=== PATIENT | female | born 1940 | race Caucasian/White ===

== ENCOUNTER 2017-02-16 23:45 | Emergency (ER) | payer MEDICARE, OTHER ==
[~2017-02-16] VITALS: Ht 152.4 cm; Wt 68.0 kg
[~2017-02-16 23:45] MED LIST: ABIL2TAB PO; ABIL2TAB2 PO; AMLO-150 PO; ASPI325T PO; ASPI81TA85 PO; BISO10TA3 PO; BISO5TAB2 PO; CALC600T21 PO; CELE40TA PO; CRES10TA32 PO; CRES20TA PO; CRES5TAB PO; CYMB60CA3 PO; EXFO5TAB2 PO; IBUP200C PO; MULT1TAB8 PO; OXYB5TAB PO; OXYB5TAB80 PO; PLAV75TA38 PO
[2017-02-17] MEDS ORDERED: MORPHINE 10 MG/ML 1ML VIAL IM ONE (01:15)
--- NOTE | 2017-02-17 02:20 | REPUSA ---
CLINICAL HISTORY: Back pain. TECHNIQUE: Multiple axial images were obtained through the L1-L2, L2-L3, L3-L4, L4-L5 and L5-S1 inter spaces. Images were also reconstructed in coronal and sagittal planes. COMMENTS: S-shaped degenerative lumbar scoliosis. Moderate diffuse spondylotic changes. Unremarkable transpedicular screws at L2, L3 and L4 levels. There is no fracture visualized. The paraspinal soft tissues are unremarkable. There are no lytic or blastic lesions. Straightening of lumbar lordosis is seen, suggesting muscular spasm. There is evidence of multilevel disk disease, demonstrated by osteophytosis ad endplate sclerosis. Evaluation of individual levels reveals the following: At L4-L5 and L5-S1, broad-based disk protrusion in conjunction with hypertrophic facet disease result s in moderate bilateral foraminal narrowing.Canal is mildly stenotic. At L3-L4, broad-based disk bulge, results in mild bilateral foraminal narrowing. Canal is patent. L1-L2 and L2-L3 levels are unremarkable. IMPRESSION: 1. No fracture or spondylolisthesis. Unremarkable metallic hardware at L2, L3 and L4 levels. 2. Straightening of lumbar lordosis is seen, suggesting muscular spasm. 3. At L4-L5 and L5-S1, broad-based disk protrusion in conjunction with hypertrophic facet disease res ults in moderate bilateral foraminal narrowing. . Canal is mildly stenotic. 4. At L3-L4, broad-based disk bulge, results in mild bilateral foraminal narrowing. Canal is patent. Thank you for your kind referral of this patient.
[2017-02-17] MEDS ORDERED: KETO10TAB PO (02:24)
[2017-02-17 02:55] VITALS: BP 149/65
== END 2017-02-17 03:03 | disposition home or self-care (01) ==
LOC: EDBD 23:45 → M ED 02-17 00:59
DX: M46.96 Unspecified inflammatory spondylopathy, lumbar region (principal)

== ENCOUNTER 2017-08-23 09:54 | Inpatient (IN) | payer MEDICARE, OTHER ==
[~2017-08-23] VITALS: Ht 157.5 cm; Wt 68.8 kg
[~2017-08-23 09:54] MED LIST changes: +ABIL1TAB13 PO; -ABIL2TAB2 PO; -CALC600T21 PO; +CALC600T60 PO; -IBUP200C PO; +IBUP200C10 PO; +KETO10TAB PO; +PLAV1TAB2 PO; -PLAV75TA38 PO
[2017-08-23] MEDS ORDERED: HYDR-643 PO (10:16)
[2017-08-23] MEDS ORDERED: CLON0.5T PO (10:16)
[2017-08-23] MEDS ORDERED: METO1TAB32 PO (10:16)
[2017-08-23] MEDS ORDERED: VENL37.598 PO (10:16)
[2017-08-23] MEDS ORDERED: LEVA750T7 PO (10:40)
--- NOTE | 2017-08-23 10:55 | REP ---
CT Head without contrast HISTORY: Syncope COMPARISON: 10/21/2016 An area of decreased attenuation is present in the posterior left temporal , parietal and occipital lobes. There is dilatation of the overlying cortical sulci and posterior body atria and occipital horn of the left lateral ventricle. This represents an old infarction. Areas of decreased attenuation are present in the periventricular and subcortical white matter. This represents small-vessel ischemic disease. There is no intraparenchymal hemorrhage, acute infarct, mass or midline shift. The ventricular system and cortical sulci as well as subarachnoid space in the posterior fossa are dilated consistent with mild volume loss. There is no extra cerebral collection. There is no fracture. The visualized sinuses are clear. IMPRESSION: 1. 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 2. Small vessel ischemic disease. 3. Mild volume loss. Signed by Alexey Argueta MD 08/23/2017 10:47 A
--- NOTE | 2017-08-23 11:28 | REP ---
PORTABLE CHEST X-RAY: SINGLE VIEW. HISTORY: Syncope. COMPARISON STUDY: October 13, 2016 FINDINGS: The lungs are symmetrically aerated. There is some linear platelike atelectasis in the right base laterally which is a new finding. No infiltrate is seen. Pleural angles are sharp. There is a costal cartilage calcification projecting along the left heart border which is unchanged from 2014 prior study. The thoracic aorta is calcific. The heart is not enlarged. Pulmonary vasculature is not increased. The patient is status post lumbar spine laminectomy and fusion hardware placement. IMPRESSION: Linear platelike atelectasis right base. Otherwise no acute disease. Signed by Jeffery Romo MD 08/23/2017 03:30 P
[2017-08-23 12:14] LABS: BASO # 0.1 10^3/uL (0.0-0.2); BASO % 0.5 % (0.0-1.0); EOS # 0.1 10^3/uL (0.0-0.50); EOS % 0.5 % (0.0-3.0); IMMATURE GRANULOCYTE % 0.4 % (0-0); LYMPH # 2.3 10^3/uL (1.5-4.5); LYMPH % 21.6 % (24.0-44.0); MEAN CORPUSCULAR HEMOGLOBIN 30.1 pg (27.0-33.0); MEAN CORPUSCULAR HGB CONC 34.1 g/dl (32.0-36.5); MEAN CORPUSCULAR VOLUME 88.2 fl (80.0-96.0); MONO # 0.9 10^3/uL (0.0-0.8); MONO % 8.2 % (0.0-5.0); NEUTROPHILS # 7.2 10^3/uL (1.8-7.7); NEUTROPHILS % 68.8 % (36.0-66.0); PLATELET COUNT, AUTOMATED 302 10^3/uL (150-450); RED CELL DISTRIBUTION WIDTH 12.1 % (11.5-14.5); WHITE BLOOD COUNT 10.5 10^3/uL (4.0-10.0)
[2017-08-23 12:15] LABS: ADD MANUAL DIFFER NO; DIFF SLIDE NUMBER 186
[2017-08-23 12:44] LABS: ANION GAP 12 MEQ/L (8-16); BLOOD UREA NITROGEN 24 MG/DL (7-18); CALCIUM LEVEL 9.7 MG/DL (8.8-10.2); CARBON DIOXIDE LEVEL 24 MEQ/L (21-32); CHLORIDE LEVEL 98 MEQ/L (98-107); CREATININE FOR GFR 1.31 MG/DL (0.55-1.02); GLOMERULAR FILTRATION RATE 42.1 (>39); GLUCOSE, FASTING 75 MG/DL (83-110); POTASSIUM SERUM 4.2 MEQ/L (3.5-5.1); SODIUM LEVEL 134 MEQ/L (136-145)
[2017-08-23] MEDS ORDERED: NS 1,000 ML IV ONE (13:30)
[2017-08-23] MEDS ORDERED: CALC600T31 PO (14:12)
[2017-08-23] MEDS ORDERED: ASPI1TAB PO (14:12)
[2017-08-23] MEDS ORDERED: ROSU20TA PO (14:12)
[2017-08-23] MEDS ORDERED: CLOP75TA2 PO (14:12)
[2017-08-23] MEDS ORDERED: VENL75CA2 PO (14:12)
[2017-08-23] MEDS ORDERED: ONDANSETRON 4MG/2ML VIAL (J2405) IV PRN (15:30)
[2017-08-23] MEDS ORDERED: clonazePAM 0.5 MG TAB PO PRN (15:30)
--- NOTE | 2017-08-23 15:59 | HPEPDOC ---
General Date of Admission 08/23/17 Primary Care Physician: Jr Garcia Collins Attending Physician: GORGE HANCOCK MD Chief Complaint The patient is a 76-year-old female admitted with a reason for visit of syncope. Source: Patient, Family Exam Limitations: No limitations History of Present Illness Mrs. Arzate is a 76 y/o female with hx of CVA and HLD presenting with c/o lightheadedness and syncope. She notes that for the past 4 days she has felt lightheadedness when standing and describes feeling like she's gonna have a syncopal episode everytime she attempts to ambulate on her own. Pt reports that 5 days ago (Tuesday-08/19), she went on a roadtrip with her daughter to visit her grandson. On Tuesday, at breakfast, she was feeling okay and had an episode of slurring of her speech and altered mentation. Daughter reports that the episode lasted about 3-4 minutes and resolved on its own. She notes that patient was speaking, however, she was slurring her words and her answers didnt make sense. She notes that the patient appeared to have abruptly returned back to normal stating patient "snapped out of it". Pt notes that she has no recollection of the events and that she did not have any particular symptoms prior to or after the event. She notes feeling fatigued/weak after the event but no other focal deficits or residual sxs. She was taken by EMS to the hospital in [place] where she was visiting and had negative blood work as well as negative CT head. She was advised that she appeared to have a UTI per UA and was prescribed Levaquin 750mg and d/c home. Daughter notes that since then patient has had decreased PO intake, and has been sleeping most of the day. Patient reports that she has felt very nauseous since Tuesday and has not had an appetite and this is the reason for her decreased PO intake. Pt's notes that patient has had issues sleeping for the past 2 weeks due to restlessness and not able to fall asleep. Pt states that she has anti-anxiety medication that she has been told to use prn for insomnia and reports she has not used it in the past two weeks. She denies feeling anxious or any recent stressors. Daughter notes that patient has had similar sxs in the past with anxiousness and associated nausea, and notes she believes this is due to patient not using her prn anti anxiety medications as advised. In the ED, patient reports that her nausea has improved, but that she is still feeling lightheaded when she stands. Pt had orthostatic vitals obtained in the ED and standing BP was unattainable. Repeat supine BP shortly after was 101 systolic followed by a BP of 80's systolic. Patient denies CP, SOB, palpitations , LE edema, CASTILLO, focal weakness, vomiting, or urinary symptoms. Home Medications Scheduled (Bisoprolol Fumarate/Dubach 5-6.25 mg) 1 Tab Tab, 1 TAB PO DAILY, (Reported) (Amlodipine Besylate/Valsa 5-160 mg) 1 Tab Tab, 1 TAB PO DAILY, (Reported) (Multi Vitamin Daily) 1 Tab Tab, 1 TAB PO DAILY, (Reported) Aripiprazole (Abilify) 2 Mg Tab, 2 MG PO DAILY, (Reported) Aspirin (Aspirin 81) 81 Mg Tab, 81 MG PO DAILY, (Reported) Calcium (Calcium) 600 Mg Tab, 1,200 MG PO DAILY, (Reported) Citalopram Hydrobromide (Celexa) 40 Mg Tab, 40 MG PO DAILY, (Reported) Clopidogrel Bisulfate (Clopidogrel) 75 Mg Tab, 75 MG PO DAILY, (Reported) Levofloxacin Hemihydrate (Levaquin) 750 Mg Tab, 750 MG PO DAILY, (Reported) FOR 7 DAYS STARTED ON 08/20 Metoprolol Succinate (Metoprolol Succinate ER) 25 Mg Tab, 25 MG PO DAILY, ( Reported) Oxybutynin Chloride (Oxybutynin Chloride ER) 5 Mg Tab, 5 MG PO DAILY, (Reported) Rosuvastatin Calcium (Rosuvastatin Calcium) 20 Mg Tab, 20 MG PO DAILY, (Reported ) Venlafaxine HCl (Venlafaxine HCl ER) 37.5 Mg Capcr, 37.5 MG PO DAILY, (Reported) TAKES WITH 75MG DOSE Venlafaxine HCl (Venlafaxine HCl ER) 75 Mg Cap, 75 MG PO DAILY, (Reported) TAKES WITH 37.5MG DOSE Scheduled PRN Clonazepam (Clonazepam) 0.5 Mg Tab, 0.25 MG PO Q6H PRN for ANXIETY, (Reported) Hydroxyzine HCl (Hydroxyzine HCl) 10 Mg Tab, 10 MG PO QID PRN for DIZZINESS, ( Reported) Ibuprofen (Ibuprofen) 200 Mg Cap, 400 MG PO Q6H PRN for PAIN, (Reported) Allergies Coded Allergies: No Known Allergies (Unverified , 12/12/13) Past Medical History Medical History CVA (09/2016) Depression HTN HLD Surgical History Tonsillectomy Ovarian Cyst removal Appendectomy Lumbar Spinal Stenosis with bulging disks Bilateral Cataracts Lumpectomy Family History Mother-noncontributory Father-sudden , arrhythmia Social History * Smoker: former Smoker (Pt quit 09/2016 after stroke. Used to smoke 1/2 ppd for 50 years. ) Alcohol: Denies Drugs: denies Recent Travel/Sick Contacts: Reports: Recent travel (roadtrip to [place] this past weekend (4 days ago)), Denies: Recent sick contacts Psychosocial History: Anxiety, Depression Review of Symptoms Constitutional: Reports: Weakness, Fatigue, Denies: Chills, Fever, Malaise, Night Sweats, Weight Loss, Lethargy, Other Eyes: Reports: Vision change (chronic, from previous stroke, issue with peripheral vision. no change from baseline), Denies: Pain ENT: Denies: Head Aches, Ear Pain, Dysphagia, Sinus Congestion, Post Nasal Drip , Sore Throat, Other Symptoms Skin: Denies: Rash, Lesions, Bruising, Itching, Dry, Breakdown Pulmonary: Denies: Dyspnea, Cough, Pleuritic Chest Pain Cardiovascular: Reports: Lt Headedness (worse with standing), Denies: Chest Pain, Palpitations, Orthopnea, Paroxysmal Noc. Dyspnea, Edema Gastrointestinal: Reports: Nausea, Denies: Vomiting, Abdominal Pain, Diarrhea, Constipation Genitourinary: Denies: Dysuria, Frequency, Incontinence, Retention Hematologic: Denies: Bruising, Enlarged Lymph Nodes Endocrine: Denies: Polydipsia, Polyphagia, Polyuria Musculoskeletal: Denies: Back Pain, Muscle Pain Neurological: Reports: Weakness, Change in speech (4 days ago, resolved now), Confusion (4 days ago, resolved), Denies: Numbness, Incoordination, Seizures Psych: Denies: Anxiety (has hx of anxiety, denies feeling anxious recently) Physical Examination General Exam: Positive: Alert, Cooperative, No Acute Distress Eye Exam: Positive: PERRLA, Conjunctiva & lids normal, EOMI ENT Exam: Positive: Atraumatic, Tongue Midline, Other ENT (dry mucous membranes ) Chest Exam: Positive: Clear to auscultation, Normal air movement, Negative: Rales, Rhonchi, Wheezing, Diminished Heart Exam: Positive: Rate Normal, Regular Rhythm, Normal S1, Normal S2, Negative: Gallops, Murmurs, Rubs Telemetry: Positive: No significant arrhythmia, Sinus Abdomen Exam: Positive: Normal bowel sounds, Soft, Negative: Tenderness, Hepatospenomegaly Extremity Exam: Positive: Normal pulses, Negative: Edema Skin Exam: Negative: Rash Neuro Exam: Positive: Normal Speech, Strength at 5/5 X4 ext, Normal Tone, Sensation Intact, Cranial Nerves 3-12 NL, Negative: Normal Gait (required assistance due to lightheadedness, able to ambulate with assistance) Vital Signs Vital Signs Date Time Temp Pulse Resp B/P (MAP) Pulse Ox O2 Delivery O2 Flow Rate FiO2 08/23/17 12:46 88/48 (61) 08/23/17 12:39 66 98 08/23/17 10:08 98.7 18 Room Air Laboratory Data Labs 24H Laboratory Tests 2 08/23/17 11:22: Bedside Glucose (Misc Panel) 74L 08/23/17 12:03: Immature Granulocyte % (Auto) 0.4H, White Blood Count 10.5H, Red Blood Count 4.42, Hemoglobin 13.3, Hematocrit 39.0, Mean Corpuscular Volume 88.2, Mean Corpuscular Hemoglobin 30.1, Mean Corpuscular Hemoglobin Concent 34.1, Red Cell Distribution Width 12.1, Platelet Count 302, Neutrophils (%) (Auto) 68.8H, Lymphocytes (%) (Auto) 21.6L, Monocytes (%) (Auto) 8.2H, Eosinophils (%) (Auto) 0.5, Basophils (%) (Auto) 0.5, Neutrophils # (Auto) 7.2, Lymphocytes # (Auto) 2.3, Monocytes # (Auto) 0.9H, Eosinophils # (Auto) 0.1, Basophils # (Auto) 0.1, Immature Granulocyte # (Auto) 0.0, Nucleated Red Blood Cells % (auto) 0.0, Anion Gap 12, Glomerular Filtration Rate 42.1, Blood Urea Nitrogen 24H, Creatinine 1.31H, Sodium Level 134L, Potassium Level 4.2, Chloride Level 98, Carbon Dioxide Level 24, Calcium Level 9.7, Total Creatine Kinase 241H, Magnesium Level 2.0, Creatine Kinase MB 5.4H, Creatine Kinase MB Relative Index 2.24, Troponin I < 0.02, Thyroid Stimulating Hormone (TSH) 1.370, Free Thyroxine 1.30 CBC/BMP Laboratory Tests 08/23/17 12:03 Red Blood Count 4.42, Mean Corpuscular Volume 88.2, Mean Corpuscular Hemoglobin 30.1, Mean Corpuscular Hemoglobin Concent 34.1, Red Cell Distribution Width 12.1 , Neutrophils (%) (Auto) 68.8 H, Lymphocytes (%) (Auto) 21.6 L, Monocytes (%) ( Auto) 8.2 H, Eosinophils (%) (Auto) 0.5, Basophils (%) (Auto) 0.5, Neutrophils # (Auto) 7.2, Lymphocytes # (Auto) 2.3, Monocytes # (Auto) 0.9 H, Eosinophils # (Auto) 0.1, Basophils # (Auto) 0.1, Calcium Level 9.7, Total Creatine Kinase 241 H RAD Interpretation STUDY: CT head without contrast Rad Actions: Other Rad Comments: (No change from prior, no evidence of ischemia) STUDY: CXR Rad Actions: Report Reviewed (NAD) Problems (1) Near syncope Status: Acute Problem Text: Pt with syncopal-like episode 4 days ago, now presenting with pre -syncope. Orthostatic vital signs positive for Orthostatic hypotension, suspect patient's symptoms could be secondary to volume depletion. Patient with normal EKG, normal CHEYANNE last year 09/2016 with no evidence of systolic dysfunction or significant valvular abnormalities. Pt also with negative CT head here and unchanged from previous imaging in September 2016 Plan for admission to PCU for tele monitoring, volume repletion, US carotids as patient has hx of stroke and is a former smoker with no previous US carotids. Pt med list also reviewed, pt on BB and CCB as well as ARB. Plan to hold antihypertensives as pt's BP has been low and these can exacerbate OH sxs. (2) Prerenal azotemia Status: Acute Problem Text: Plan for fluid resuscitation, NS @ 100mL/hr. Will recheck AM labs. (3) Nausea Status: Acute Response to Treatment: Stable Problem Text: Improving, will give Zofran prn. No QT prolongation on EKG in ED (4) Hypertension Status: Chronic Problem Text: Pt on Metoprolol as well as Amlodipine/Valsartan combo, will hold both at this time as patient's BP has been low and these can exacerbate her current sxs. (5) UTI (urinary tract infection) Status: Acute Problem Text: Dx in [place] and started on abx's. She reports no urinary sxs. Pt currently on Levaquin 750mg, will continue this to finish the full course (6) Hyperlipemia Status: Chronic Problem Text: Continue patient's statin. (7) Depression Status: Chronic Problem Text: Will continue patient's home regimen of antidepressants as well as anti anxiety meds. Plan / VTE VTE Prophylaxis Ordered?: Yes (Lovenox) GME ATTESTATION GME ATTESTATION My preceptor for this patient encounter was physically present in the building during the encounter and was fully available. As needed, all aspects of the patient interview, examination, medical decision making process, and medical care plan development were reviewed and approved by the preceptor. Preceptor is aware and concurs with the plan as stated in the body of this note and will attest to such by his/her cosignature. DEEPALI WOODARD DO Aug 23, 2017 14:27
[2017-08-23 17:30] VITALS: BP 101/52
--- NOTE | 2017-08-23 17:30 | REP ---
Bilateral carotid artery duplex ultrasound: Peak flow velocity analysis: RIGHT LEFT ICA. Peak flow velocity cm/sec 58 78 ICA Peak flow velocity cm/sec 18 25 ICA/CCA Ratio 0.70 0.71 ECA Peak flow velocity cm/sec 86 162 CCA Peak flow velocity cm/sec 83 110 There is intimal thickening in the common carotid arteries bilaterally extending into the bulbs and partially into the internal carotid arteries and external carotid arteries bilaterally. The flow velocities in the internal carotid arteries are normal bilaterally. There is no internal carotid artery stenosis. There is elevated peak flow velocity in the left external carotid artery suggestive of 50 - 69% stenosis. The peak flow velocity in the right external carotid artery is normal. There is antegrade flow in the right vertebral artery. The left vertebral artery could not be visualized. Impression: 15 - 69% stenosis in the left external carotid artery. No other stenosis. The study is technically difficult because of high bifurcations bilaterally and because of patient non stop swallowing during the procedure. Depending on degree of clinical concern consider follow-up MRA. Signed by Avelino Cullen MD 08/23/2017 05:22 P
[2017-08-23 17:32] VITALS: BP 102/53
[2017-08-23 17:34] VITALS: BP 109/51
[2017-08-23] MEDS: NS 1,000 ML IV SCH (17:54)
[2017-08-23 20:00] VITALS: BP 102/50
[2017-08-23] MEDS: ENOXAPARIN 40 MG/0.4 ML SYRINGE (J1650) SC SCH (20:57)
[2017-08-24 01:14] VITALS: BP 110/46
[2017-08-24] MEDS: NS 1,000 ML IV SCH (01:22)
[2017-08-24 04:00] VITALS: BP_SYST 101; BP_SYST 104; BP_SYST 109; BP_DIAS 49; BP_DIAS 54
[2017-08-24 06:00] LABS: MEAN CORPUSCULAR HEMOGLOBIN 29.3 pg (27.0-33.0); MEAN CORPUSCULAR HGB CONC 33.2 g/dl (32.0-36.5); MEAN CORPUSCULAR VOLUME 88.2 fl (80.0-96.0); RED CELL DISTRIBUTION WIDTH 12.1 % (11.5-14.5); WHITE BLOOD COUNT 7.9 10^3/uL (4.0-10.0)
[2017-08-24 06:18] LABS: BLOOD UREA NITROGEN 27 MG/DL (7-18); CARBON DIOXIDE LEVEL 21 MEQ/L (21-32); CHLORIDE LEVEL 106 MEQ/L (98-107); CREATININE FOR GFR 0.94 MG/DL (0.55-1.02); GLOMERULAR FILTRATION RATE > 60.0 (>39); GLUCOSE, FASTING 87 MG/DL (83-110)
--- NOTE | 2017-08-24 06:19 | ECGEPIP ---
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 RBBB Electronically Signed On 08-24-2017 6:18:39 EDT by Nick Hines
[2017-08-24 06:25] LABS: ANION GAP 11 MEQ/L (8-16); SODIUM LEVEL 138 MEQ/L (136-145)
[2017-08-24 06:26] LABS: POTASSIUM SERUM 3.1 MEQ/L (3.5-5.1)
[2017-08-24] MEDS ORDERED: POTASSIUM CHLORIDE 10 MEQ SR TABLET PO ONE (06:30)
[2017-08-24 08:00] VITALS: BP 124/56
[2017-08-24] MEDS: ROSUVASTATIN 10 MG TAB (CRESTOR) PO SCH (09:04)
[2017-08-24] MEDS: ASPIRIN 81 MG ENTERIC TAB PO SCH (09:04)
[2017-08-24] MEDS: CitaloPRAM (CeleXA) 20 MG TAB PO SCH (09:04)
[2017-08-24] MEDS: CLOPIDOGREL 75 MG TAB PO SCH (09:04)
[2017-08-24] MEDS: CALCIUM CARBONATE 500 MG CHEW U/D PO SCH (09:04)
[2017-08-24] MEDS: VENLAFAXINE **XR** 75MG CAPSULE PO SCH (09:05)
[2017-08-24] MEDS: VENLAFAXINE **XR** 37.5 MG CAPSULE PO SCH (09:05)
[2017-08-24] MEDS: oxyBUTYnin *DITROPAN XL* 5 MG TABCR PO SCH (09:05)
[2017-08-24] MEDS: MULTIVITAMINS/MINERALS THERAP 1 TAB PO SCH (09:05)
[2017-08-24 12:00] VITALS: BP_SYST 121; BP_SYST 122; BP_SYST 125; BP_DIAS 56; BP_DIAS 60
[2017-08-24] MEDS: ARIPiprazole 2 MG TAB PO SCH (12:03)
--- NOTE | 2017-08-24 12:25 | IPNPDOC ---
Subjective Date Seen The patient was seen on 08/24/17. Subjective Chief Complaint/HPI The patient is a 76-year-old female admitted with a reason for visit of Orthostatic Hypotension. Events since last encounter still with lightheadedness and dizziness on getting up from bed, continues to have poor appetite and nausea , no vomiting , no abdominal pain , no diarrhea. no chest pain or sob , no cough or phlegm, no dysuria, Objective Physical Examination General Exam: Positive: Alert, Cooperative, No Acute Distress Eye Exam: Positive: PERRLA, Conjunctiva & lids normal, EOMI ENT Exam: Positive: Atraumatic, Tongue Midline, Other ENT (dry mucous membranes ) Chest Exam: Positive: Clear to auscultation, Normal air movement, Negative: Rales, Rhonchi, Wheezing, Diminished Heart Exam: Positive: Rate Normal, Regular Rhythm, Normal S1, Normal S2, Negative: Gallops, Murmurs, Rubs Telemetry: Positive: No significant arrhythmia, Sinus Abdomen Exam: Positive: Normal bowel sounds, Soft, Negative: Tenderness, Hepatospenomegaly Extremity Exam: Positive: Normal pulses, Negative: Edema Skin Exam: Negative: Rash Neuro Exam: Positive: Normal Speech, Strength at 5/5 X4 ext, Normal Tone, Sensation Intact, Cranial Nerves 3-12 NL, Negative: Normal Gait (required assistance due to lightheadedness, able to ambulate with assistance) Assessment /Plan Problems (1) Near syncope Status: Acute Problem Text: pre-syncope. Orthostatic vital signs positive for Orthostatic hypotension, suspect patient's symptoms secondary to volume depletion on the back ground of being on multiple antihypertensives and diuretic. Patient with normal EKG, normal CHEYANNE last year 09/2016 with no evidence of systolic dysfunction or significant valvular abnormalities. Carotid Doppler negative for significant obstruction. will continue to hold antihypertensives continue IVF . (2) MITCHEL (acute kidney injury) Status: Acute Problem Text: prerenal for poor intake . will continue with IVF. (3) Nausea Status: Acute Response to Treatment: Improving Problem Text: Improving, will give Zofran prn. No QT prolongation on EKG in ED (4) Hypertension Status: Chronic Problem Text: Pt on Metoprolol and bisoprolol as well as Amlodipine/Valsartan combo also HCTZ. , will hold both at this time as patient's BP has been low and these can exacerbate her current sxs. Unsure why patient on double betablockers. (5) UTI (urinary tract infection) Status: Resolved Problem Text: patient finished 4 doses of levaquin will stop at present. (6) Hyperlipemia Status: Chronic Problem Text: Continue patient's statin. (7) Depression Status: Chronic Problem Text: Will continue patient's home regimen of antidepressants as well as anti anxiety meds. (8) History of CVA (cerebrovascular accident) Status: Chronic Problem Text: CT head shows old left temporo parietal and occipital lobe infarction. Plan/VTE VTE Prophylaxis Ordered?: Yes (Lovenox) VS, I&O, 24H, Fishbone Vital Signs/I&O Vital Signs Date Time Temp Pulse Resp B/P (MAP) Pulse Ox O2 Delivery O2 Flow Rate FiO2 08/24/17 08:00 97.8 89 18 124/56 (78) 100 Room Air I&O- Last 24 Hours up to 6 AM 08/25/17 06:00 Intake Total 0 ml Output Total 300 ml Balance -300 ml Laboratory Data 24H LABS Laboratory Tests 2 08/23/17 17:02: Urine Appearance HAZY, Urine Color YELLOW, Urine pH 5.0, Urine Specific Secor 1.009, Urine Protein 1+H, Urine Glucose (UA) NEGATIVE, Urine Ketones 1+H, Urine Urobilinogen 0.2, Urine Bilirubin NEGATIVE, Urine Leukocyte Esterase NEGATIVE, Urine Blood 1+H, Urine Nitrite NEGATIVE, Urine WBC (Auto) 9H, Urine RBC (Auto) 4H, Urine Hyaline Casts (Auto) 1, Urine Bacteria (Auto) NEGATIVE, Urine Squamous Epithelial Cells 0, Urine Mucus (Auto) SMALL, Urine Sperm (Auto) 08/24/17 05:34: Anion Gap 11, Glomerular Filtration Rate > 60.0, Blood Urea Nitrogen 27H, Creatinine 0.94, Sodium Level 138, Potassium Level 3.1#L, Chloride Level 106, Carbon Dioxide Level 21, Calcium Level 8.0#L CBC/BMP Laboratory Tests 08/24/17 05:34 Red Blood Count 3.65 L, Mean Corpuscular Volume 88.2, Mean Corpuscular Hemoglobin 29.3, Mean Corpuscular Hemoglobin Concent 33.2, Red Cell Distribution Width 12.1, Calcium Level 8.0 #L Microbiology Microbiology 08/23/17 Blood Culture, Received Pending 08/23/17 Blood Culture, Received Pending 08/23/17 Urine Culture, Received Pending TERRY CHILDERS MD Aug 24, 2017 12:25
[2017-08-24 14:00] VITALS: BP 116/48
[2017-08-24 20:00] VITALS: BP_SYST 110; BP_SYST 120; BP_DIAS 51; BP_DIAS 56; BP_DIAS 58
[2017-08-24] MEDS: ENOXAPARIN 40 MG/0.4 ML SYRINGE (J1650) SC SCH (20:59)
[2017-08-25 06:00] VITALS: BP 127/60
[2017-08-25 07:13] LABS: MEAN CORPUSCULAR HEMOGLOBIN 29.9 pg (27.0-33.0); MEAN CORPUSCULAR HGB CONC 34.1 g/dl (32.0-36.5); MEAN CORPUSCULAR VOLUME 87.9 fl (80.0-96.0); RED CELL DISTRIBUTION WIDTH 12.1 % (11.5-14.5); WHITE BLOOD COUNT 6.2 10^3/uL (4.0-10.0)
[2017-08-25 07:26] LABS: ANION GAP 10 MEQ/L (8-16); BLOOD UREA NITROGEN 14 MG/DL (7-18); CALCIUM LEVEL 8.3 MG/DL (8.8-10.2); CARBON DIOXIDE LEVEL 21 MEQ/L (21-32); CHLORIDE LEVEL 107 MEQ/L (98-107); CREATININE FOR GFR 0.74 MG/DL (0.55-1.02); GLOMERULAR FILTRATION RATE > 60.0 (>39); GLUCOSE, FASTING 104 MG/DL (83-110); POTASSIUM SERUM 3.4 MEQ/L (3.5-5.1); SODIUM LEVEL 138 MEQ/L (136-145)
[2017-08-25] MEDS: CALCIUM CARBONATE 500 MG CHEW U/D PO SCH (08:58)
[2017-08-25] MEDS: ASPIRIN 81 MG ENTERIC TAB PO SCH (08:58)
[2017-08-25] MEDS: MULTIVITAMINS/MINERALS THERAP 1 TAB PO SCH (08:59)
[2017-08-25] MEDS: ARIPiprazole 2 MG TAB PO SCH (08:59)
[2017-08-25] MEDS: VENLAFAXINE **XR** 37.5 MG CAPSULE PO SCH (08:59)
[2017-08-25] MEDS: CitaloPRAM (CeleXA) 20 MG TAB PO SCH (08:59)
[2017-08-25] MEDS: VENLAFAXINE **XR** 75MG CAPSULE PO SCH (08:59)
[2017-08-25] MEDS: CLOPIDOGREL 75 MG TAB PO SCH (08:59)
[2017-08-25] MEDS: oxyBUTYnin *DITROPAN XL* 5 MG TABCR PO SCH (08:59)
[2017-08-25] MEDS: ROSUVASTATIN 10 MG TAB (CRESTOR) PO SCH (09:00)
[2017-08-25] MEDS ORDERED: INFLUENZA VIRUS VACCINE HIGH DOSE 0.5 ML SYRINGE (90662) IM ONE (09:00)
[2017-08-25 10:00] VITALS: BP_SYST 105; BP_SYST 119; BP_SYST 120; BP_DIAS 54; BP_DIAS 57; BP_DIAS 60
[2017-08-25] MEDS ORDERED: POTASSIUM CHLORIDE 10 MEQ SR TABLET PO ONE (11:30)
--- NOTE | 2017-08-25 13:52 | DSES ---
DATE OF ADMISSION: 08/23/2017 DATE OF DISCHARGE: 08/25/2017 PRIMARY CARE PROVIDER: Paramjit Garcia MD DISCHARGE DIAGNOSES: Presyncope due to orthostatic hypotension. Acute kidney injury due to prerenal causes. Hypotension due to poor oral intake and medications. Urinary tract infection, treated. Hyperlipidemia. Depression. History of cerebrovascular accident (CVA). Overactive bladder Chronic pain. DISCHARGE MEDICATIONS: - Abilify 2 mg by mouth daily - aspirin 81 mg by mouth daily - calcium 1200 mg by mouth daily - Celexa 40 mg by mouth daily - clonazepam 0.25 mg by mouth every 6 hours as needed anxiety - Plavix 75 mg by mouth daily - hydroxyzine 10 mg by mouth four times a day as needed dizziness - ibuprofen 400 mg by mouth every 6 hours as needed pain - metoprolol succinate 25 mg by mouth daily - multivitamin one tablet by mouth daily - oxybutynin chloride 5 mg by mouth daily - rosuvastatin 20 mg by mouth daily - venlafaxine 112.5 mg by mouth daily HOSPITAL COURSE: Patient is a 76-year-old female who presented to the hospital with a four day history of nausea, poor oral intake and presyncopal episode with lightheadedness and dizziness. Patient was visiting her grandson in [place] five days ago when while there she had a presyncopal episode with drooping of one side of the face and weakness of one side of the body. She was taken to the emergency room in [place] where the family thought she may have had a stroke, however emergency room physicians diagnosed her with a UTI and discharged her with levofloxacin. Patient was taking levofloxacin at home, came back to [place] after her visit and was continuing to have nausea and poor oral intake, and then on the day of admission again was very lightheaded and dizzy and almost passed out and so was brought to the emergency room. In the emergency room, the patient was noted to have low normal blood pressures with orthostatic positive hypotension. The patient was also noted to have mild dehydration with acute kidney injury. Patient was admitted for a presyncopal episode due to orthostatic hypotension and acute kidney injury from dehydration and poor oral intake. In the hospital, the patient's antihypertensives were held and the patient was hydrated with normal saline. Patient felt better and her blood pressures improved; however, still continued to be in the low normal to normal range. So, two of her blood pressure medications were discontinued and she was only discharged with metoprolol succinate. On the day of discharge the patient did not have any symptoms and her orthostatic had resolved. She was functionally at her baseline and was discharged home. PHYSICAL EXAMINATION: VITAL SIGNS: Temperature 96.9, pulse 70, respiratory rate 20, blood pressure 120/60, pulse oximetry 96% in room air. GENERAL: Patient awake, alert and oriented times three sitting up in chair in no acute distress. HEENT: Normocephalic, atraumatic. Moist mucous membranes. Anicteric eyes. CHEST: Clear to auscultation. CARDIOVASCULAR: S1 and S2 regular. No rub, murmur or gallop. ABDOMEN: Soft, nontender. Bowel sounds present. EXTREMITIES: No edema. LABORATORY DATA: WBC 6.2, hemoglobin 10.6, platelets 229, sodium 138, potassium 3.4, chloride 107, bicarb 21, BUN 14, creatinine 0.7, glucose 104, calcium 8.3. Urinalysis clean. Blood culture no growth after 24 hours. Urine culture no growth. CT scan of the head shows old left temporoparietal and occipital lobe infarction. Small vessel ischemic disease. Mild volume loss. Carotid ultrasound showed 15-69% stenosis in the left external carotid artery. No other stenosis. DISPOSITION: Patient is discharged home in stable condition. DISCHARGE INSTRUCTIONS: Patient to followup with primary care provider in one week. Regular diet. Activity as tolerated.
[2017-09-21] MEDS ORDERED: SENE8.6T3 PO (13:44)
== END 2017-08-25 12:00 | disposition home or self-care (01) | DRG 312 ==
LOC: M ED 09:54 → EDBD 09:54 → M ED INP 13:58 → M PCU 17:30 → M MS4PR 08-24 13:40
PROVIDERS: ADMIT Internal Medicine; ATTEND Internal Medicine Nephrology
DX: I95.1 Orthostatic hypotension (principal); N17.9 Acute kidney failure, unspecified; N39.0 Urinary tract infection, site not specified; E78.5 Hyperlipidemia, unspecified; F32.9 Major depressive disorder, single episode, unspecified; G89.29 Other chronic pain; Z86.73 Personal history of transient ischemic attack (TIA), and cerebral infarction without residual deficits; Z79.82 Long term (current) use of aspirin; Z79.899 Other long term (current) drug therapy; Z87.891 Personal history of nicotine dependence

== ENCOUNTER → 2017-09-05 | Outpatient (REF) | payer MEDICARE, OTHER ==
[~2017-09-05] MED LIST changes: +ASPI1TAB PO; +CALC600T31 PO; +CLON0.5T PO; +CLOP75TA2 PO; +HYDR-643 PO; +LEVA750T7 PO; +METO1TAB32 PO; +ROSU20TA PO; +SENE8.6T3 PO; +VENL37.598 PO; +VENL75CA2 PO
[2017-09-06 08:25] LABS: CONTROL LINE HPYORI INT CTR LINE PRESENT
== END ==
LOC: M LAB REF 17:01
PROVIDERS: ATTEND Nurse Practitioner Family
DX: R11.0 Nausea (principal)

== ENCOUNTER 2017-10-19 16:19 | Emergency (ER) | payer MEDICARE, OTHER ==
[~2017-10-19] VITALS: Ht 154.9 cm; Wt 66.4 kg
[2017-10-19] MEDS ORDERED: AMLODIPINE-VALSARTAN (16:41)
[2017-10-19] MEDS ORDERED: KLON0.5T PO (16:41)
[2017-10-19 18:14] LABS: BASO # 0.1 10^3/uL (0.0-0.2); BASO % 0.9 % (0.0-1.0); EOS # 0.2 10^3/uL (0.0-0.50); EOS % 2.3 % (0.0-3.0); IMMATURE GRANULOCYTE % 0.3 % (0-0); LYMPH # 2.1 10^3/uL (1.5-4.5); LYMPH % 22.9 % (24.0-44.0); MEAN CORPUSCULAR HEMOGLOBIN 29.2 pg (27.0-33.0); MEAN CORPUSCULAR HGB CONC 33.3 g/dl (32.0-36.5); MEAN CORPUSCULAR VOLUME 87.6 fl (80.0-96.0); MONO # 0.8 10^3/uL (0.0-0.8); MONO % 8.4 % (0.0-5.0); NEUTROPHILS # 5.9 10^3/uL (1.8-7.7); NEUTROPHILS % 65.2 % (36.0-66.0); PLATELET COUNT, AUTOMATED 373 10^3/uL (150-450); RED CELL DISTRIBUTION WIDTH 12.4 % (11.5-14.5); WHITE BLOOD COUNT 9.1 10^3/uL (4.0-10.0)
[2017-10-19 18:27] LABS: INR 0.98
[2017-10-19 18:35] LABS: ALBUMIN 3.2 GM/DL (3.2-5.2); ALKALINE PHOSPHATASE 70 U/L (45-117); ALT/SGPT 17 U/L (12-78); ANION GAP 7 MEQ/L (8-16); AST/SGOT 12 U/L (7-37); BILIRUBIN,DIRECT < 0.1 MG/DL (0.0-0.2); BILIRUBIN,TOTAL 0.3 MG/DL (0.2-1.0); BLOOD UREA NITROGEN 16 MG/DL (7-18); CALCIUM LEVEL 9.4 MG/DL (8.8-10.2); CARBON DIOXIDE LEVEL 29 MEQ/L (21-32); CHLORIDE LEVEL 100 MEQ/L (98-107); CREATININE FOR GFR 0.89 MG/DL (0.55-1.02); GLOMERULAR FILTRATION RATE > 60.0 (>39); GLUCOSE, FASTING 107 MG/DL (83-110); POTASSIUM SERUM 3.8 MEQ/L (3.5-5.1); SODIUM LEVEL 136 MEQ/L (136-145); TOTAL PROTEIN 6.4 GM/DL (6.4-8.2)
[2017-10-19 19:42] VITALS: BP 157/84
== END 2017-10-19 19:45 | disposition home or self-care (01) ==
LOC: M ED 16:19
DX: K05.00 Acute gingivitis, plaque induced (principal); Z87.891 Personal history of nicotine dependence; Z79.899 Other long term (current) drug therapy; Z79.02 Long term (current) use of antithrombotics/antiplatelets; Z86.73 Personal history of transient ischemic attack (TIA), and cerebral infarction without residual deficits; I10 Essential (primary) hypertension; E78.4 Other hyperlipidemia

== ENCOUNTER 2017-10-24 08:58 | Emergency (ER) | payer MEDICARE, OTHER ==
[~2017-10-24] VITALS: Ht 152.4 cm; Wt 62.3 kg
[~2017-10-24 08:58] MED LIST changes: +AMLODIPINE-VALSARTAN; +KLON0.5T PO
[2017-10-24] MEDS ORDERED: VITA200016 PO (09:14)
[2017-10-24] MEDS ORDERED: VENL100T PO (09:14)
[2017-10-24] MEDS ORDERED: NS 500 ML IV ONE (10:00)
[2017-10-24] MEDS ORDERED: ONDANSETRON 4MG/2ML VIAL (J2405) IV ONE (10:00)
[2017-10-24 10:06] LABS: BASO # 0.1 10^3/uL (0.0-0.2); BASO % 0.9 % (0.0-1.0); EOS # 0.1 10^3/uL (0.0-0.50); EOS % 1.8 % (0.0-3.0); IMMATURE GRANULOCYTE % 0.8 % (0-0); LYMPH # 1.6 10^3/uL (1.5-4.5); LYMPH % 23.5 % (24.0-44.0); MEAN CORPUSCULAR HEMOGLOBIN 29.5 pg (27.0-33.0); MEAN CORPUSCULAR HGB CONC 33.6 g/dl (32.0-36.5); MEAN CORPUSCULAR VOLUME 87.7 fl (80.0-96.0); MONO # 0.4 10^3/uL (0.0-0.8); NEUTROPHILS # 4.5 10^3/uL (1.8-7.7); PLATELET COUNT, AUTOMATED 370 10^3/uL (150-450); RED CELL DISTRIBUTION WIDTH 12.5 % (11.5-14.5); WHITE BLOOD COUNT 6.6 10^3/uL (4.0-10.0)
[2017-10-24 10:36] LABS: ALBUMIN 3.2 GM/DL (3.2-5.2); ALBUMIN/GLOBULIN RATIO 0.91 (1.00-1.93); ALKALINE PHOSPHATASE 64 U/L (45-117); ALT/SGPT 20 U/L (12-78); ANION GAP 6 MEQ/L (8-16); AST/SGOT 16 U/L (7-37); BILIRUBIN,DIRECT < 0.1 MG/DL (0.0-0.2); BILIRUBIN,TOTAL 0.3 MG/DL (0.2-1.0); BLOOD UREA NITROGEN 8 MG/DL (7-18); CALCIUM LEVEL 8.9 MG/DL (8.8-10.2); CARBON DIOXIDE LEVEL 30 MEQ/L (21-32); CHLORIDE LEVEL 101 MEQ/L (98-107); CREATININE FOR GFR 0.64 MG/DL (0.55-1.02); GLOMERULAR FILTRATION RATE > 60.0 (>39); GLUCOSE, FASTING 108 MG/DL (83-110); POTASSIUM SERUM 3.3 MEQ/L (3.5-5.1); SODIUM LEVEL 137 MEQ/L (136-145); TOTAL PROTEIN 6.7 GM/DL (6.4-8.2)
[2017-10-24] MEDS ORDERED: ISOVUE-370 76% 100ML VIAL (Q9967) As Ordered ONE (10:47)
--- NOTE | 2017-10-24 11:39 | REP ---
CT abdomen and pelvis with IV contrast: 10/24/2017 Comparison 09/26/2017 at [facility]. Clinical history: Lower abdominal pain, nausea. Technique. The patient received 75 ml as Isovue 370, scanning through the abdomen and pelvis with coronal and sagittal reconstructions. Axial images with orthopedic metal artifact reduction algorithm performed. Director Of Assessing image shows that she has an L2-L4 lumbar laminectomy and fusion with pedicle screws and arch bars. Findings: CT abdomen: The lung bases show minimal linear atelectatic change left lower lobe. Heart is not enlarged. There is no pericardial thickening or effusion. I do not see enlargement of the left atrium. This is very small hiatal hernia suggested. No hepatosplenomegaly, focal hepatic or splenic lesion, intrahepatic biliary dilatation or ascites. Gallbladder without calcified stone or mass. Adrenal glands are normal. Pancreas without mass, ductal dilatation or adjacent inflammatory change. Kidneys show lobation, some scarring laterally lower pole on the left. There is extrarenal pelvis bilaterally right larger than left, but no gross hydronephrosis. I see no definite renal cyst or solid mass. There is no renal stone or ureteral stone. Bladder well filled and without wall thickening, mass or stone. Atherosclerotic calcifications are noted with the aorta but no aneurysm or dissection. Hardware with pedicle screws and arch bars on each side from L2 through L4 are intact. The normal lordosis of the lumbar spine intact. There are some degenerative disc changes and small posterior osteophytes at L3-4. Disc space narrowing at all three of those levels. Laminectomy defects preserved. There is atherosclerotic calcification of the iliac arteries without aneurysm in aortoiliac vessels. No periaortic or retroperitoneal pathologic sized lymphadenopathy. Visualized small bowel loops grossly intact. Abdominal portion of the colon shows no sign of colitis or diverticulitis. There are a few scattered distal left colonic diverticula. Lung window review of all CT slices abdomen and pelvis shows no perforation or free air. Visualized lower ribs intact. CT pelvis: Sacrum, SI joints, iliac bones were all intact. Acetabuli show minor spurring. The femoral heads, neck, trochanters and subtrochanteric bones on each side were all without fracture or focal lesion. Minor degenerative change of the hips. Bladder without wall thickening, mass or stone. Uterus anteverted, not enlarged. There is no pelvic or adnexal mass. No ventral or inguinal hernia nor pathologic sized inguinal adenopathy. Distal left colon, sigmoid and rectum without acute inflammatory changes and only a few scattered diverticula without diverticulitis. Cecum unremarkable. No appendix is present. No ventral or inguinal hernia in the pelvis or inguinal adenopathy. Impression: 1. Status post L2-L4 laminectomy with pedicle screws and arch bars on each side and normal lumbar lordosis. No ventral hernia, central canal stenosis or malalignment of the lumbar spine. 2. A few scattered diverticula without signs of diverticulitis, colitis, stricture or mass in the colon. 3. Small bowel loops intact. Stomach with a tiny hiatal hernia but otherwise unremarkable. The colon shows no evidence of colitis or diverticulitis. 4. No ascites or adenopathy and no free air. The solid organs, gallbladder, and the abdominal wall unremarkable. No ventral or inguinal hernia. Signed by Moreno Mueller MD 10/25/2017 07:18 P
[2017-10-24 11:49] VITALS: BP 153/69
== END 2017-10-24 11:51 | disposition home or self-care (01) ==
LOC: M ED 08:58
DX: K59.00 Constipation, unspecified (principal); R11.0 Nausea; M54.5 Low back pain; E78.9 Disorder of lipoprotein metabolism, unspecified; I10 Essential (primary) hypertension; F03.90 Unspecified dementia, unspecified severity, without behavioral disturbance, psychotic disturbance, mood disturbance, and anxiety; Z86.73 Personal history of transient ischemic attack (TIA), and cerebral infarction without residual deficits; Z79.899 Other long term (current) drug therapy; Z79.02 Long term (current) use of antithrombotics/antiplatelets; Z79.82 Long term (current) use of aspirin
CPT/HCPCS: 74177; 80048; 80076; 81001; 83690; 85025; 96374; 99284; J2405; Q9967

== ENCOUNTER → 2018-03-14 | Outpatient (REF) | payer MEDICARE, OTHER ==
[2018-03-14 17:56] LABS: ERYTHROCYTE SEDIMENTATION RATE 25 mm/hr (0-30)
[2018-03-14 18:13] LABS: FREE T4 0.88 NG/DL (0.76-1.46); RHEUMATOID FACTOR QUANT < 10.0 IU/ML (<15.0); VITAMIN B12 LEVEL 559 PG/ML
[2018-03-14 18:14] LABS: ESTIMATED AVERAGE GLUCOSE 123 MG/DL (60-110); FOLATE 6.1 NG/ML; HEMOGLOBIN A1c 5.9 %
[2018-03-19 10:08] LABS: ANTINUCLEAR ANTIBODIES DIRECT Negative (Negative); VITAMIN B1 LEVEL WHOLE BLOOD 123.5 nmol/L (66.5-200.0); VITAMIN B6,PYRIDOXAL PHOSPHATE 3.8 ug/L (2.0-32.8); VITAMIN E(ALPHA TOCOPHEROL) 11.3 mg/L (9.0-29.0)
== END ==
LOC: M LABNEURO 12:07
DX: G62.9 Polyneuropathy, unspecified (principal); G91.2 (Idiopathic) normal pressure hydrocephalus; R41.3 Other amnesia; R26.81 Unsteadiness on feet; Z79.899 Other long term (current) drug therapy
CPT/HCPCS: 82746

== ENCOUNTER → 2019-08-03 | Outpatient (REF) ==
[~2019-08-03] MED LIST changes: +ASPI-1 PO; -ASPI1TAB PO; -ASPI325T PO; +ASPI81TA26 PO; -CLON0.5T PO; +CLON0.5T2 PO; +CRES10TA PO; -CRES10TA32 PO; -CRES20TA PO; +CRES20TA2 PO; +HYDR12.55; -IBUP200C10 PO; +IBUP200C25 PO; +MECL1TAB31 PO; +OXYB-54 PO; -OXYB5TAB PO; -ROSU20TA PO; +ROSU20TA5 PO; +VENL100T PO; +VITA200016 PO
[2019-08-03 12:03] LABS: HEMATOCRIT 38.8 % (36.0-47.0); HEMOGLOBIN 12.7 g/dl (12.0-15.5); MEAN CORPUSCULAR HEMOGLOBIN 28.9 pg (27.0-33.0); MEAN CORPUSCULAR HGB CONC 32.7 g/dl (32.0-36.5); MEAN CORPUSCULAR VOLUME 88.4 fl (80.0-96.0); PLATELET COUNT, AUTOMATED 322 10^3/uL (150-450); RED BLOOD COUNT 4.39 10^6/uL (4.00-5.40); WHITE BLOOD COUNT 8.6 10^3/uL (4.0-10.0)
[2019-08-03 12:30] LABS: ALBUMIN 3.3 GM/DL (3.2-5.2); ALT/SGPT 19 U/L (12-78); BILIRUBIN,TOTAL 0.4 MG/DL (0.2-1.0); BLOOD UREA NITROGEN 26 MG/DL (7-18); CALCIUM LEVEL 9.4 MG/DL (8.8-10.2); CARBON DIOXIDE LEVEL 24 MEQ/L (21-32); CHLORIDE LEVEL 103 MEQ/L (98-107); CREATININE FOR GFR 0.74 MG/DL (0.55-1.30); GLOMERULAR FILTRATION RATE > 60.0 (>39); GLUCOSE, FASTING 95 MG/DL (70-100); POTASSIUM SERUM 3.8 MEQ/L (3.5-5.1); SODIUM LEVEL 137 MEQ/L (136-145); TOTAL PROTEIN 6.5 GM/DL (6.4-8.2)
== END ==
LOC: SKLAB8 11:15
PROVIDERS: ATTEND Internal Medicine
DX: I10 Essential (primary) hypertension (principal); D64.9 Anemia, unspecified

== ENCOUNTER 2020-01-18 03:16 | Inpatient (IN) | payer OTHER, MEDICARE ==
[~2020-01-18] VITALS: Ht 157.5 cm; Wt 59.3 kg
[~2020-01-18 03:16] MED LIST changes: -AMLO-150 PO; +AMLO-179 PO
[2020-01-18] MEDS ORDERED: SENN1TAB41 PO (03:56)
[2020-01-18] MEDS ORDERED: POTA10CA32 PO (03:56)
[2020-01-18] MEDS ORDERED: FLEEENE12 PR (03:56)
[2020-01-18] MEDS ORDERED: ACET-907 PO (03:56)
[2020-01-18] MEDS ORDERED: HYDR12.55 PO (03:56)
[2020-01-18] MEDS ORDERED: FLUT05CR TOP (03:56)
[2020-01-18] MEDS ORDERED: VENL37.52 PO (03:56)
[2020-01-18] MEDS ORDERED: VENL75CA47 PO (03:56)
[2020-01-18] MEDS ORDERED: DULC10SU2 PR (03:56)
[2020-01-18] MEDS ORDERED: VITMTA PO (03:56)
[2020-01-18] MEDS ORDERED: VITA50005 PO (03:56)
[2020-01-18] MEDS ORDERED: IPRA0.00 INH (03:56)
[2020-01-18] MEDS ORDERED: ACET650S3 PR (03:56)
[2020-01-18 04:05] LABS: BASO % 0.2 % (0.0-1.0); HEMATOCRIT 42.1 % (36.0-47.0); HEMOGLOBIN 14.1 g/dl (12.0-15.5); LYMPH # 0.7 10^3/uL (1.5-5.0); LYMPH % 5.2 % (24.0-44.0); MEAN CORPUSCULAR HEMOGLOBIN 29.7 pg (27.0-33.0); MEAN CORPUSCULAR HGB CONC 33.5 g/dl (32.0-36.5); MEAN CORPUSCULAR VOLUME 88.6 fl (80.0-96.0); MONO # 0.8 10^3/uL (0.0-0.8); MONO % 5.5 % (0.0-5.0); NEUTROPHILS # 12.2 10^3/uL (1.5-8.5); NEUTROPHILS % 88.8 % (36.0-66.0); PLATELET COUNT, AUTOMATED 249 10^3/uL (150-450); RED BLOOD COUNT 4.75 10^6/uL (4.00-5.40); WHITE BLOOD COUNT 13.8 10^3/uL (4.0-10.0)
[2020-01-18 04:31] LABS: CALCIUM LEVEL 8.9 MG/DL (8.8-10.2); CREATININE FOR GFR 0.98 MG/DL (0.55-1.30); GLOMERULAR FILTRATION RATE 58.4 (>39); POTASSIUM SERUM 3.1 MEQ/L (3.5-5.1)
[2020-01-18 04:44] LABS: INFLUENZA A AMPLIFICATION NEGATIVE (NEGATIVE); INFLUENZA B AMPLIFICATION POSITIVE (NEGATIVE)
[2020-01-18] MEDS ORDERED: PIPERACILLIN/TAZOBACTAM SOD 3.375 GM in D5W MINI-BAG PLUS 50 ML IV ONE (04:45)
[2020-01-18] MEDS ORDERED: OSELTAMIVIR PHOSPHATE 75 MG CAP (TAMIFLU) PO ONE (05:00)
[2020-01-18] MEDS ORDERED: ACETAMINOPHEN 325 MG TAB As Ordered ONE (05:10)
[2020-01-18] MEDS ORDERED: MOM 30ML SUSPENSION UDC PO PRN (05:15)
[2020-01-18] MEDS ORDERED: MAALOX 30 ML SUSP *UDC PO PRN (05:15)
--- NOTE | 2020-01-18 05:18 | HPEPDOC ---
[facility] Medical History & Physical Date of Admission Jan 18, 2020 Date of Service: Jan 18, 2020 Primary Care Physician: Jr Garcia Collins Attending Physician: YORDAN WALLACE MD History and Physical TIME OF SERVICE: 5:15 AM CHIEF COMPLAINT: Some from intermediate HISTORY OF PRESENT ILLNESS: The patient has advanced dementia, the majority of the history was obtained from the ER attending and the patient's daughter. This is a 75-year-old female who was sent from her intermediate because of a drop in O2 saturation 87% and a fever as high as 109. The family requested that the intermediate send her for evaluation to expedite the workup. According to the patient's daughter, she's not sure if her mother has had a change in her behavior, or whether she's had any URI symptoms, change in appetite, or change in routine. Currently the patient is asleep and intermittently arousable with vocal stimuli. She received Zosyn for left lower lobe pneumonia. REVIEW OF SYSTEMS: 12 point review of systems negative except as listed in HPI PAST MEDICAL/ SURGICAL HISTORY: Vascular dementia /CVA in 2016 Dyslipidemia Chronic hypertension. Status post tonsillectomy. Status post ovarian cystectomy. Status post appendectomy. Status post lumbar spinal stenosis. Status post cataract surgery. Status post lumpectomy SOCIAL HISTORY: Resides at [facility] FAMILY HISTORY: N/A ALLERGIES: Please see below. HOME MEDICATIONS: Please see below. PHYSICAL EXAMINATION: Vital Signs Date Time Temp Pulse Resp B/P (MAP) Pulse Ox O2 Delivery O2 Flow Rate FiO2 01/18/20 03:25 107 24 87 Room Air 01/18/20 03:46 100.9 4.0 01/18/20 03:47 128/58 (81) 01/18/20 05:17 50 GEN: well-nourished / well developed INTEGUMENT: not flushed HEENT: NCAT / lips acyanotic /mucus membranes moist and pink / Ventimask is in place CVS: RRR/NMRG LUNGS: Breath sounds are diminished ABDOMEN: Contour (flat) / soft NEURO: CN 2-12 are grossly intact PSYCH: alert and oriented to person place and time/ able to understand and follow all commands Laboratory Tests 01/18/20 03:55 IMAGING: Chest x-ray shows left lower lobe pneumonia, but the final read is pending MICROBIOLOGY: Please see below. ASSESSMENT: Ms. Arzate is a 73 old female the past medical history of vascular dementia, CVA, hypertension, and dyslipidemia who is admitted for management of acute hypoxic respiratory failure & sepsis 2/2 to left lower lobe pneumonia & influenza B. PLAN: 1. Sepsis 2/2 LLL PNA and Influenza B SIRS criteria include Temp >101 / HR >90 / WBC >12 / > RR 20 Lactic acid >1 She received Zosyn in the ER Plan: admit to ICU / telemetry / continuous pulse ox & supplemental O2 / Sepsis protocol w repeat lactic acid in 3H /switch to ceftriaxone & azithromycin along with Tamiflu/ bolus IVF /f/u blood cx, sputum Cx, Legionella / Acetaminophen PRN for fever / target MAP 65 to 70 / f/u Is and Os with target UOP of at least 0.5 ml/kg/H / target serum glucose 140-180 while acutely ill / code status is DNR / she should receive Pneumovax or Prevnar prior to discharge if she has not received these meds 2. Acute Hypoxic Respiratory Failure 2/[address] Jacobson her O2 sat was 87% at the intermediate on room air Currently she requires Ventimask to maintain saturation between 89-91% Plan: f/u VBG / Continuous pulse ox / supplemental oxygen Ventimask/treat pneumonia and influenza 3. Hypokalemia possibly due to poor oral intake. - Plan: Replete K follow-up magnesium 4. Chronic HTN - Plan: HTCZ 5. Vascular Dementia - Plan: the patient's daughter will try and be present during the hospital stay as much as possible DVT PROPHYLAXIS: Lovenox DISPOSITION: back to after more than 2 midnight's stay Home Medications Scheduled Ergocalciferol (Vitamin D2) (Vitamin D2) 50,000 Units Cap, 50,000 UNITS PO QMONTH THE 16TH OF EVERY MONTH Hydrochlorothiazide (Hydrochlorothiazide) 12.5 Mg Tablet, 12.5 MG PO DAILY Ipratropium/Albuterol Sulfate (Iprat-Albut 0.5-3(2.5) mg/3 ml) 3 Ml Ampul.neb, 3 ML INH Q6H 3 DAYS FROM 01/18/20 TO 01/20/20: 0400, 1000, 1600, 2200 Multivitamins (Thera M Plus Tablet) 1 Each Tablet, 1 TAB PO DAILY Potassium Chloride (Potassium Chloride) 10 Meq Capsule.er, 20 MEQ PO DAILY Sennosides/Docusate Sodium (Senna-S Tablet) 1 Each Tablet, 2 TAB PO DAILY Venlafaxine HCl (Venlafaxine HCl ER) 37.5 Mg Cap.er.24h, 37.5 MG PO DAILY TAKES WITH 75MG FOR 112.5MG TOTAL Venlafaxine HCl (Venlafaxine HCl ER) 75 Mg Cap.er.24h, 75 MG PO DAILY TAKES WITH 37.5MG FOR 112.5MG TOTAL Scheduled PRN Acetaminophen (Acetaminophen) 650 Mg Supp.rect, 650 MG ME Q4H PRN for PAIN / FEV ER Acetaminophen (Tylenol) 325 Mg Tablet, 650 MG PO Q4H PRN for PAIN / FEVER Bisacodyl (Dulcolax) 10 Mg Supp.rect, 10 MG ME DAILY PRN for CONSTIPATION Fluticasone Propionate (Fluticasone Propionate 0.05%) 30 Gm Cream..g., 1 DOSE TOP BID PRN for FLARES APPLY TO AFFECTED AREAS ON EYELIDS AND FLARES Sodium Phosphate,Mccurtain-Dibasic (Fleet Enema) 133 Ml Enema, 1 [place] ME DAILY PRN for CONSTIPATION Allergies Coded Allergies: No Known Allergies (Unverified , 11/29/17) A-FIB/CHADSVASC A-FIB History Current/History of A-Fib/PAF?: No Current PO Anticoag Therapy: No YORDAN WALLACE MD Jan 18, 2020 05:18
[2020-01-18] MEDS ORDERED: IPRATROPIUM 0.5MG/ALBUTEROL 2.5MG INH SOL UD 3ML (DUONEB)(J7620) As Ordered ONE (05:23)
[2020-01-18] MEDS: ACETAMINOPHEN TAB 650MG DOSE (2X325MG) PO PRN (05:31)
[2020-01-18] MEDS ORDERED: IPRATROPIUM 0.5MG/ALBUTEROL 2.5MG INH SOL UD 3ML (DUONEB)(J7620) NEB ONE (05:45)
[2020-01-18] MEDS ORDERED: POTASSIUM CHLORIDE INJ 30 MEQ in LR 1,000 ML IV ONE (06:15)
[2020-01-18 06:44] LABS: VENOUS BASE EXCESS -3.3 (-2.0-2.0); VENOUS HCO3 20.7 MEQ/L (23.0-27.0); VENOUS O2 SATURATION 96.5 % (60.0-80.0); VENOUS PARTIAL PRESSURE O2 85.9 mmHg (30.0-50.0); VENOUS PH 7.402 UNITS (7.330-7.430); VENOUS STANDARD HCO3 21.7 MEQ/L; VENOUS TOTAL CO2 21.7 MEQ/L (24.0-28.0)
[2020-01-18] MEDS ORDERED: NS 1,000 ML IV ONE (08:00)
[2020-01-18] MEDS ORDERED: LR 1,000 ML IV ONE (08:00)
[2020-01-18] MEDS ORDERED: MAGNESIUM OXIDE 400 MG TAB (MAG-OX) PO ONE (08:00)
[2020-01-18] MEDS: IPRATROPIUM 0.5MG/ALBUTEROL 2.5MG INH SOL UD 3ML (DUONEB)(J7620) INH SCH ×3 (08:00→19:53)
[2020-01-18] MEDS: ENOXAPARIN 40 MG/0.4 ML SYRINGE (J1650) SC SCH ×2 (09:00→09:15)
[2020-01-18] MEDS: SENOKOT S TAB PO SCH ×2 (09:00→09:16)
[2020-01-18] MEDS: NS 1,000 ML IV SCH ×2 (09:00→09:17)
[2020-01-18] MEDS: DOCUSATE SODIUM 100 MG CAP PO SCH ×3 (09:00→21:00)
[2020-01-18] MEDS: hydroCHLOROthiazide 12.5 MG CAPSULE PO SCH ×2 (09:00→09:17)
[2020-01-18] MEDS: VENLAFAXINE **XR** 37.5 MG CAPSULE PO SCH ×2 (09:00→09:18)
[2020-01-18] MEDS: VENLAFAXINE **XR** 75MG CAPSULE PO SCH ×2 (09:00→09:18)
[2020-01-18] MEDS: POTASSIUM CHLORIDE 10 MEQ SR TABLET PO SCH ×2 (09:00→09:15)
[2020-01-18 10:00] VITALS: BP 109/47
--- NOTE | 2020-01-18 13:44 | IPNPDOC ---
Text Note Date of Service The patient was seen on 01/18/20. NOTE S: Pt examined at bedside. Continues to be confused with baseline advanced dementia. When asked how she is feeling or has any complaints or symptoms, she repeats "I don't know." Fever 101.3 this morning and remains on 2-3 L nasal cannula. PE: Vitals: see below General: NAD, not alert or oriented -baseline dementia, resting comfortably HEENT: NCAT, EOMI, anicteric sclera, MMM CV: RRR, no murmurs or clicks or rub. No edema RESP: equal chest rise, no accessory muscle use, rales LLL, otherwise clear in remaining villalba, on supplemental O2 ABD: soft, NT, ND. Benign EXTREMITIES: 2+ radial pulses b/l, able to move all extremities NEURO: condused baseline dementia, no focal deficits A/P: This is 71-year-old female who is brought in by daughter from [facility] due to desaturating into the 80s and fever. She has baseline advanced de mentia and unable to verbalize any complaints. She was found to be septic on admission, fever 100.9, tachycardic in 100s, tachypnic in mid 20s, desatting into 80s, requiring Venti mask and then nasal cannula, and leukocytosis at 13.8. Tested positive for Influenza B. Sepsis 2/2 influenza B Continues to be febrile and requiring supplemental oxygen-no O2 at baseline Lactic acidosis improving with IV fluids Continue antibiotics - Ceftriaxone & Azithro until cultures & Procal result CXR report pending - ?infiltrate LLL, crackles on exam continue droplet precaution, wean off O2 as tolerated Acute hypoxic respiratory failure s/p Venti mask on admission, still on supplemental O2 NC 2-3L likely 2/2 lung infxn, see above wean off as tolerated Hypomagnesemia supplemented Hypertension Controlled, continue home HCTZ Depression Stable, continue home venlafaxine Vascular dementia Poor historian. Daughter involved in care DVT ppx: Lovenox sc DISPO: pending clinical improvement and cultures. Possible d/c back to [facility] early next week. VS,Fishbone, I+O VS, Fishbone, I+O Laboratory Tests 01/18/20 03:55 Vital Signs Date Time Temp Pulse Resp B/P (MAP) Pulse Ox O2 Delivery O2 Flow Rate FiO2 01/18/20 10:00 98.0 80 17 109/47 (67) 98 Nasal Cannula 3.0 01/18/20 05:17 50 GME ATTESTATION GME ATTESTATION My faculty preceptor for this patient encounter was physically present during the encounter and was fully available. All aspects of the patient interview, examination, medical decision making process, and medical care plan development were reviewed and approved by the faculty preceptor. The faculty preceptor is aware and concurs with the plan as stated in the body of this note and will attest to such by his/her cosignature. ATTENDING NOTE I, Maureen Levine, have independently examined this patient and performed my own physical exam, as well as reviewed the documentation and edited where necessary. I have discussed in detail with the resident / student the findings and plan of treatment as documented by the resident / student and edited their note. I agree with their findings and treatment plan and have edited their documentation. I will continue to follow the patient during this hospital stay. SANFORD BURGER DO Jan 18, 2020 13:44 MAUREEN LEVINE MD Jan 18, 2020 16:16
[2020-01-18 14:00] VITALS: BP 104/51
[2020-01-18] MEDS: KCL 10MEQ/100ML SWI (KRUN) 10 MEQ in IV 1 EA IV SCH ×2 (14:45→16:00)
[2020-01-18 18:00] VITALS: BP 120/63
[2020-01-18] MEDS ORDERED: OSELTAMIVIR PHOSPHATE 30MG CAPSULE PO SCH (21:00)
[2020-01-18 22:00] VITALS: BP 133/67
[2020-01-18] MEDS: OSELTAMIVIR 6 MG/ML SUSP PO SCH (22:35)
[2020-01-19] MEDS: IPRATROPIUM 0.5MG/ALBUTEROL 2.5MG INH SOL UD 3ML (DUONEB)(J7620) INH SCH ×4 (00:52→19:54)
[2020-01-19 02:00] VITALS: BP 126/82
[2020-01-19] MEDS: NS 1,000 ML IV SCH (02:25)
[2020-01-19 06:00] VITALS: BP 132/74
[2020-01-19] MEDS ORDERED: AZITHROMYCIN INJ 500 MG, VIAL MATE ADAPTER 1 EACH in D5W 250 ML IV SCH (06:00)
[2020-01-19 06:12] LABS: HEMATOCRIT 34.6 % (36.0-47.0); MEAN CORPUSCULAR HEMOGLOBIN 29.9 pg (27.0-33.0); MEAN CORPUSCULAR HGB CONC 32.9 g/dl (32.0-36.5); MEAN CORPUSCULAR VOLUME 90.8 fl (80.0-96.0); PLATELET COUNT, AUTOMATED 202 10^3/uL (150-450); RED BLOOD COUNT 3.81 10^6/uL (4.00-5.40); WHITE BLOOD COUNT 8.6 10^3/uL (4.0-10.0)
[2020-01-19 06:27] LABS: HEMOGLOBIN 11.4 g/dl (12.0-15.5)
[2020-01-19 06:32] LABS: BLOOD UREA NITROGEN 16 MG/DL (7-18); CALCIUM LEVEL 7.6 MG/DL (8.8-10.2); CARBON DIOXIDE LEVEL 24 MEQ/L (21-32); CHLORIDE LEVEL 111 MEQ/L (98-107); CREATININE FOR GFR 0.57 MG/DL (0.55-1.30); GLOMERULAR FILTRATION RATE > 60.0 (>39); GLUCOSE, FASTING 82 MG/DL (70-100); MAGNESIUM LEVEL 1.8 MG/DL (1.8-2.4); POTASSIUM SERUM 3.2 MEQ/L (3.5-5.1); SODIUM LEVEL 142 MEQ/L (136-145)
[2020-01-19] MEDS ORDERED: cefTRIAXone SOD 1 GM in D5W MINI-BAG PLUS 50 ML IV SCH (08:00)
[2020-01-19] MEDS ORDERED: KCL 10MEQ/100ML SWI (KRUN) 10 MEQ in IV 1 EA IV SCH (08:00)
[2020-01-19] MEDS: OSELTAMIVIR 6 MG/ML SUSP PO SCH ×2 (08:24→22:28)
[2020-01-19] MEDS: VENLAFAXINE **XR** 75MG CAPSULE PO SCH (08:25)
[2020-01-19] MEDS: VENLAFAXINE **XR** 37.5 MG CAPSULE PO SCH (08:25)
[2020-01-19] MEDS: hydroCHLOROthiazide 12.5 MG CAPSULE PO SCH (08:25)
[2020-01-19] MEDS: DOCUSATE SODIUM 100 MG CAP PO SCH ×2 (08:26→21:02)
[2020-01-19] MEDS: SENOKOT S TAB PO SCH (08:26)
[2020-01-19] MEDS: ENOXAPARIN 40 MG/0.4 ML SYRINGE (J1650) SC SCH (08:26)
[2020-01-19] MEDS ORDERED: POTASSIUM CHLORIDE 10 MEQ SR TABLET PO ONE (08:45)
[2020-01-19] MEDS ORDERED: OSELTAMIVIR PHOSPHATE 75 MG CAP (TAMIFLU) PO SCH (09:00)
[2020-01-19] MEDS: CEFDINIR 300 MG CAP (OMNICEF) PO SCH ×2 (09:59→21:02)
[2020-01-19 10:00] VITALS: BP_SYST 152; BP_SYST 155; BP_DIAS 54; BP_DIAS 77
[2020-01-19] MEDS ORDERED: ONDANSETRON 4MG/2ML VIAL (J2405) IV PRN (10:45)
[2020-01-19 13:02] LABS: HEMATOCRIT 35.4 % (36.0-47.0); HEMOGLOBIN 11.7 g/dl (12.0-15.5)
[2020-01-19 13:31] LABS: BLOOD UREA NITROGEN 14 MG/DL (7-18); CALCIUM LEVEL 7.9 MG/DL (8.8-10.2); CARBON DIOXIDE LEVEL 25 MEQ/L (21-32); CHLORIDE LEVEL 106 MEQ/L (98-107); CREATININE FOR GFR 0.52 MG/DL (0.55-1.30); GLOMERULAR FILTRATION RATE > 60.0 (>39); GLUCOSE, FASTING 98 MG/DL (70-100); POTASSIUM SERUM 3.5 MEQ/L (3.5-5.1); SODIUM LEVEL 137 MEQ/L (136-145)
[2020-01-19 14:00] VITALS: BP 137/67
--- NOTE | 2020-01-19 15:34 | IPNPDOC ---
Text Note Date of Service The patient was seen on 01/19/20. NOTE S: Pt examined at bedside. No events overnight. Is more alert today, less confused today and has no complaints. Refused medicines yesterday, but complaint and cooperative today. No longer febrile, still requiring 3L NC. PE: Vitals: see below General: NAD, A&Ox2, not oriented to year/month -baseline dementia, resting comfortably HEENT: NCAT, EOMI, anicteric sclera, MMM CV: RRR, no murmurs or clicks or rub. No edema RESP: equal chest rise, no accessory muscle use, rales LLL, otherwise clear in remaining villalba, on supplemental O2 ABD: soft, NT, ND. Benign EXTREMITIES: 2+ radial pulses b/l, able to move all extremities NEURO: confused baseline dementia, no focal deficits A/P: This is 71-year-old female who is brought in by daughter from [facility] senior care due to desaturating into the 80s and fever. She has baseline advanced dementia and unable to verbalize any complaints. She was found to be septic on admission, fever 100.9, tachycardic in 100s, tachypnic in mid 20s, desatting into 80s, requiring Venti mask and then nasal cannula, and leukocytosis at 13.8. Tested positive for Influenza B. Sepsis 2/2 influenza B & likely CAP No longer afebrile. White count trending down, still requiring supplemental O2 - no O2 at baseline + Flu B, and Procal elevated 0.5 Continue antibiotics - switched to by mouth session unit azithromycin s/p IV Ceftriaxone & Azithro Continue Tamiflu & droplet precaution CXR report pending - ?infiltrate LLL, crackles on exam continue droplet precaution, wean off O2 as tolerated Acute hypoxic respiratory failure s/p Venti mask on admission, still on supplemental O2 NC 2-3L likely 2/2 lung infxn, see above wean off as tolerated Drop in H&H No overt bleeding Hemoglobin 14 on admission down to 11.4 Hgb stable in the recheck in the afternoon. Continue monitoring Hypokalemia Resolved with supplementation Hypertension Controlled, continue home HCTZ Depression Stable, continue home venlafaxine Vascular dementia Poor historian. Daughter involved in care DVT ppx: Lovenox sc DISPO: pending clinical improvement and cultures. Likely d/c back to [facility] Tuesday. VS,Fishbone, I+O VS, Fishbone, I+O Laboratory Tests 01/19/20 05:36 01/19/20 12:48 Vital Signs Date Time Temp Pulse Resp B/P (MAP) Pulse Ox O2 Delivery O2 Flow Rate FiO2 01/19/20 10:00 74 152/77 (102) 01/19/20 10:00 97.7 24 94 Nasal Cannula 3.0 01/18/20 05:17 50 I&O- Last 24 Hours up to 6 AM 01/19/20 06:00 Intake Total 890 ml Output Total 0 ml Balance 890 ml GME ATTESTATION GME ATTESTATION My faculty preceptor for this patient encounter was physically present during the encounter and was fully available. All aspects of the patient interview, examination, medical decision making process, and medical care plan development were reviewed and approved by the faculty preceptor. The faculty preceptor is aware and concurs with the plan as stated in the body of this note and will attest to such by his/her cosignature. ATTENDING NOTE I, Maureen Levine, have independently examined this patient and performed my own physical exam, as well as reviewed the documentation and edited where necessary. I have discussed in detail with the resident / student the findings and plan of treatment as documented by the resident / student and edited their note. I agree with their findings and treatment plan and have edited their documentation. I will continue to follow the patient during this hospital stay. SANFORD BURGER DO Jan 19, 2020 15:34 MAUREEN LEVINE MD Jan 19, 2020 17:30
[2020-01-19 18:00] VITALS: BP 138/67
[2020-01-19 22:00] VITALS: BP 119/72
[2020-01-20 02:00] VITALS: BP 114/78
[2020-01-20] MEDS: IPRATROPIUM 0.5MG/ALBUTEROL 2.5MG INH SOL UD 3ML (DUONEB)(J7620) INH SCH ×4 (02:13→20:50)
[2020-01-20 06:00] VITALS: BP 128/76
[2020-01-20] MEDS: ENOXAPARIN 40 MG/0.4 ML SYRINGE (J1650) SC SCH (09:37)
[2020-01-20] MEDS: OSELTAMIVIR 6 MG/ML SUSP PO SCH ×2 (09:37→21:38)
[2020-01-20] MEDS: CEFDINIR 300 MG CAP (OMNICEF) PO SCH ×2 (09:38→21:38)
[2020-01-20] MEDS: VENLAFAXINE **XR** 37.5 MG CAPSULE PO SCH (09:38)
[2020-01-20] MEDS: SENOKOT S TAB PO SCH (09:38)
[2020-01-20] MEDS: hydroCHLOROthiazide 12.5 MG CAPSULE PO SCH (09:38)
[2020-01-20] MEDS: VENLAFAXINE **XR** 75MG CAPSULE PO SCH (09:38)
[2020-01-20] MEDS: DOCUSATE SODIUM 100 MG CAP PO SCH ×2 (09:38→21:38)
[2020-01-20] MEDS: AZITHROMYCIN 250 MG TAB PO SCH (09:38)
[2020-01-20 10:00] VITALS: BP 139/66
--- NOTE | 2020-01-20 10:45 | IPNPDOC ---
Text Note Date of Service The patient was seen on 01/20/20. NOTE Subjective: Patient was seen and examined at the bedside. Currently patient reports that their breathing is doing fine. Denies any chest pain, shortness breath or p alpitations. Has been tolerating an oral diet. Objective: Vitals (See below) General: Lying in bed, no acute distress, comfortable, Awake / Alert HEENT: NC, AT CVS: +S1S2 Lungs: Fair air entry b/l, -w/r/r Abdomen: Soft, ND, NT Extremities: - Edema, - Calf tenderness Assessment and plan: Sepsis - possibly 2/2 influenza B & likely CAP - Clinically improved; no complaints this morning - Physical without any significant findings - s/p Leukocytosis - Blood cultures 01/18: negative; Influenza 01/18: Positive for Influenza B - CXR 01/18: Increased density inferiorly in the left lung. - c/w Tamiflu, Cefdinir and Azithromycin; s/p IV Ceftriaxone and Azithromycin (Antibiotic day #3) s/p Acute hypoxic respiratory failure - possibly 2/2 PNA / URTI - Saturations have improved Normocytic anemia - Drop in Hg - likely 2/2 dilutional etiology - No evidence of bleeding - Has remained stable on repeat s/p Hypokalemia HTN - BP well controlled - c/w HCTZ Depression - c/w Venlafaxine Vascular dementia - Very poor historian - Initially has refused oral intake / medications; however clinically has improved and is cooperating with medications and has been eating meals DVT prophylaxis - c/w Lovenox Disposition: - Anticipate return to [facility] tomorrow VS,Joelle, I+O VS, Joelle, I+O Laboratory Tests 01/19/20 12:48 Vital Signs Date Time Temp Pulse Resp B/P (MAP) Pulse Ox O2 Delivery O2 Flow Rate FiO2 01/20/20 06:00 97.6 77 18 128/76 (93) 95 Nasal Cannula 3.0 01/18/20 05:17 50 I&O- Last 24 Hours up to 6 AM 01/20/20 06:00 Intake Total 990 ml Output Total 0 ml Balance 990 ml LUDWIG LEVINE MD Jan 20, 2020 10:45
[2020-01-20 14:00] VITALS: BP 143/66
[2020-01-20 18:00] VITALS: BP 136/71
[2020-01-20 22:00] VITALS: BP 133/70
[2020-01-21 02:00] VITALS: BP 130/78
[2020-01-21] MEDS: IPRATROPIUM 0.5MG/ALBUTEROL 2.5MG INH SOL UD 3ML (DUONEB)(J7620) INH SCH ×4 (04:12→20:41)
[2020-01-21 06:00] VITALS: BP 129/74
[2020-01-21] MEDS: OSELTAMIVIR 6 MG/ML SUSP PO SCH (08:25)
[2020-01-21] MEDS: ENOXAPARIN 40 MG/0.4 ML SYRINGE (J1650) SC SCH (08:25)
[2020-01-21] MEDS: VENLAFAXINE **XR** 37.5 MG CAPSULE PO SCH (08:26)
[2020-01-21] MEDS: VENLAFAXINE **XR** 75MG CAPSULE PO SCH (08:26)
[2020-01-21] MEDS: hydroCHLOROthiazide 12.5 MG CAPSULE PO SCH (08:27)
[2020-01-21] MEDS: CEFDINIR 300 MG CAP (OMNICEF) PO SCH ×2 (08:27→20:03)
[2020-01-21] MEDS: SENOKOT S TAB PO SCH (08:27)
[2020-01-21] MEDS: DOCUSATE SODIUM 100 MG CAP PO SCH ×2 (08:27→20:03)
[2020-01-21] MEDS: AZITHROMYCIN 250 MG TAB PO SCH (08:27)
[2020-01-21 09:31] LABS: HEMATOCRIT 39.4 % (36.0-47.0); HEMOGLOBIN 13.5 g/dl (12.0-15.5); MEAN CORPUSCULAR HEMOGLOBIN 29.8 pg (27.0-33.0); MEAN CORPUSCULAR HGB CONC 34.3 g/dl (32.0-36.5); PLATELET COUNT, AUTOMATED 314 10^3/uL (150-450); RED BLOOD COUNT 4.53 10^6/uL (4.00-5.40)
[2020-01-21 10:16] LABS: BLOOD UREA NITROGEN 10 MG/DL (7-18); CALCIUM LEVEL 8.4 MG/DL (8.8-10.2); CARBON DIOXIDE LEVEL 25 MEQ/L (21-32); CHLORIDE LEVEL 104 MEQ/L (98-107); CREATININE FOR GFR 0.77 MG/DL (0.55-1.30); GLOMERULAR FILTRATION RATE > 60.0 (>39); GLUCOSE, FASTING 107 MG/DL (70-100); POTASSIUM SERUM 2.8 MEQ/L (3.5-5.1); SODIUM LEVEL 137 MEQ/L (136-145)
[2020-01-21] MEDS ORDERED: POTASSIUM CHLORIDE 10 MEQ SR TABLET PO ONE ×2 (11:45→15:00)
[2020-01-21] MEDS ORDERED: KCL 10MEQ/100ML SWI (KRUN) 10 MEQ in IV 1 EA IV SCH (12:00)
[2020-01-21 13:12] LABS: MAGNESIUM LEVEL 1.9 MG/DL (1.8-2.4)
[2020-01-21 14:00] VITALS: BP 118/58
[2020-01-21] MEDS: MIRALAX *UNIT DOSE* 17GM PACKET PO SCH (14:04)
--- NOTE | 2020-01-21 15:03 | IPNPDOC ---
Text Note Date of Service The patient was seen on 01/21/20. NOTE Subjective: Patient was seen and examined at the bedside. Patient any complete this morning. Denies shortness of breath or cough. Has been tolerating a full meal. Objective: Vitals (See below) General: Lying in bed, no acute distress, comfortable, Awake / Alert HEENT: NC, AT CVS: +S1S2 Lungs: There is fair air entry bilaterally without evidence of rhonchi, wheezing or rales Abdomen: Abdomen remains soft, without any distention or tenderness Extremities: - Edema, - Calf tenderness Assessment and plan: Sepsis - possibly 2/2 influenza B & likely CAP - Clinically improved; no complaints this morning - Physical without any significant findings - s/p Leukocytosis - Blood cultures 01/18: negative; Influenza 01/18: Positive for Influenza B - CXR 01/18: Increased density inferiorly in the left lung. - c/w Tamiflu, Cefdinir and Azithromycin; s/p IV Ceftriaxone and Azithromycin (Antibiotic day #4) - Discussed with [facility] manager / nursing supervisor [employer]; as per policy patient cannot return back to [facility] since she has not completed a 5 day course of Tamiflu. - Patient is a long-standing resident of [facility] and has not left that facility recently; potential source of infection is likely at [facility] - She will be made ALC status for completion of 5 days of Tamiflu s/p Acute metabolic encephalopathy - likely 2/2 sepsis - Confusion resolved - No focal deficits - Family has reported she is back to her baseline level of function - See above s/p Acute hypoxic respiratory failure - possibly 2/2 PNA / URTI - Saturations have improved Normocytic anemia - Drop in Hg - likely 2/2 dilutional etiology - No evidence of bleeding - Has remained stable on repeat s/p Hypokalemia HTN - BP well controlled - c/w HCTZ Depression - c/w Venlafaxine Vascular dementia - Very poor historian - Initially has refused oral intake / medications; however clinically has improved and is cooperating with medications and has been eating meals DVT prophylaxis - c/w Lovenox Disposition: - Patient cannot return to [facility] because of facility policy that prevents her from returning until she completes 5 day course of Tamiflu - despite high likelihood of getting influenza at [facility] - She will be transitioned to ALC VS,Fishbone, I+O VS, Fishbone, I+O Laboratory Tests 01/21/20 09:11 Vital Signs Date Time Temp Pulse Resp B/P (MAP) Pulse Ox O2 Delivery O2 Flow Rate FiO2 01/21/20 14:00 98.6 94 17 118/58 (78) 94 Room Air 01/20/20 22:00 3.0 01/18/20 05:17 50 I&O- Last 24 Hours up to 6 AM 01/21/20 06:00 Intake Total 420 ml Output Total 0 ml Balance 420 ml LUDWIG LEVINE MD Jan 21, 2020 15:03
[2020-01-21 18:57] LABS: BLOOD UREA NITROGEN 11 MG/DL (7-18); CALCIUM LEVEL 9.1 MG/DL (8.8-10.2); CARBON DIOXIDE LEVEL 28 MEQ/L (21-32); CHLORIDE LEVEL 102 MEQ/L (98-107); CREATININE FOR GFR 0.66 MG/DL (0.55-1.30); GLOMERULAR FILTRATION RATE > 60.0 (>39); GLUCOSE, FASTING 96 MG/DL (70-100); POTASSIUM SERUM 3.8 MEQ/L (3.5-5.1); SODIUM LEVEL 135 MEQ/L (136-145)
[2020-01-21] MEDS: OSELTAMIVIR PHOSPHATE 75 MG CAP (TAMIFLU) PO SCH (20:03)
[2020-01-21 22:00] VITALS: BP 125/56
[2020-01-22 02:00] VITALS: BP 130/61
[2020-01-22] MEDS: IPRATROPIUM 0.5MG/ALBUTEROL 2.5MG INH SOL UD 3ML (DUONEB)(J7620) INH SCH ×3 (02:00→20:04)
[2020-01-22 06:00] VITALS: BP 158/78
[2020-01-22 06:38] LABS: HEMOGLOBIN 12.8 g/dl (12.0-15.5); MEAN CORPUSCULAR HEMOGLOBIN 30.3 pg (27.0-33.0); MEAN CORPUSCULAR HGB CONC 34.6 g/dl (32.0-36.5); MEAN CORPUSCULAR VOLUME 87.7 fl (80.0-96.0); PLATELET COUNT, AUTOMATED 301 10^3/uL (150-450); RED BLOOD COUNT 4.22 10^6/uL (4.00-5.40); WHITE BLOOD COUNT 6.6 10^3/uL (4.0-10.0)
[2020-01-22 07:04] LABS: BLOOD UREA NITROGEN 12 MG/DL (7-18); CALCIUM LEVEL 8.7 MG/DL (8.8-10.2); CARBON DIOXIDE LEVEL 25 MEQ/L (21-32); CHLORIDE LEVEL 105 MEQ/L (98-107); CREATININE FOR GFR 0.59 MG/DL (0.55-1.30); GLOMERULAR FILTRATION RATE > 60.0 (>39); GLUCOSE, FASTING 103 MG/DL (70-100); POTASSIUM SERUM 3.6 MEQ/L (3.5-5.1); SODIUM LEVEL 136 MEQ/L (136-145)
[2020-01-22] MEDS: DOCUSATE SODIUM 100 MG CAP PO SCH ×2 (09:00→20:16)
[2020-01-22] MEDS ORDERED: POTASSIUM CHLORIDE 10 MEQ SR TABLET PO ONE (09:00)
[2020-01-22] MEDS: SENOKOT S TAB PO SCH (09:00)
[2020-01-22] MEDS: hydroCHLOROthiazide 12.5 MG CAPSULE PO SCH (09:07)
[2020-01-22] MEDS: OSELTAMIVIR PHOSPHATE 75 MG CAP (TAMIFLU) PO SCH ×2 (09:07→20:16)
[2020-01-22] MEDS: MIRALAX *UNIT DOSE* 17GM PACKET PO SCH (09:07)
[2020-01-22] MEDS: CEFDINIR 300 MG CAP (OMNICEF) PO SCH ×2 (09:07→20:15)
[2020-01-22] MEDS: ENOXAPARIN 40 MG/0.4 ML SYRINGE (J1650) SC SCH (09:07)
[2020-01-22] MEDS: AZITHROMYCIN 250 MG TAB PO SCH (09:08)
[2020-01-22] MEDS: VENLAFAXINE **XR** 37.5 MG CAPSULE PO SCH (09:08)
[2020-01-22] MEDS: VENLAFAXINE **XR** 75MG CAPSULE PO SCH (09:08)
[2020-01-22] MEDS: ACETAMINOPHEN TAB 650MG DOSE (2X325MG) PO PRN (20:15)
[2020-01-23] MEDS: IPRATROPIUM 0.5MG/ALBUTEROL 2.5MG INH SOL UD 3ML (DUONEB)(J7620) INH SCH ×2 (01:20→07:55)
[2020-01-23 06:00] VITALS: BP 112/60
[2020-01-23] MEDS ORDERED: CEFD300CAP PO (08:05)
[2020-01-23] MEDS ORDERED: AZIT-12 PO (08:05)
[2020-01-23] MEDS: MIRALAX *UNIT DOSE* 17GM PACKET PO SCH (08:39)
[2020-01-23] MEDS: DOCUSATE SODIUM 100 MG CAP PO SCH (08:40)
[2020-01-23] MEDS: VENLAFAXINE **XR** 75MG CAPSULE PO SCH (08:40)
[2020-01-23] MEDS: VENLAFAXINE **XR** 37.5 MG CAPSULE PO SCH (08:40)
[2020-01-23] MEDS: CEFDINIR 300 MG CAP (OMNICEF) PO SCH (08:40)
[2020-01-23] MEDS: hydroCHLOROthiazide 12.5 MG CAPSULE PO SCH (08:41)
[2020-01-23] MEDS: SENOKOT S TAB PO SCH (08:41)
[2020-01-23] MEDS: AZITHROMYCIN 250 MG TAB PO SCH (08:41)
[2020-01-23] MEDS: ENOXAPARIN 40 MG/0.4 ML SYRINGE (J1650) SC SCH (08:49)
[2020-01-23] MEDS: OSELTAMIVIR PHOSPHATE 75 MG CAP (TAMIFLU) PO SCH (08:52)
--- NOTE | 2020-01-23 13:54 | DS.PDOC ---
Discharge Summary General Date of Admission Jan 18, 2020 at 05:08 Date of Discharge 01/23/2020 Discharge Summary PROCEDURES PERFORMED DURING STAY: [None]. ADMITTING DIAGNOSES / DISCHARGE DIAGNOSES: Sepsis - possibly 2/2 influenza B & likely CAP s/p Acute metabolic encephalopathy - likely 2/2 sepsis s/p Acute hypoxic respiratory failure - possibly 2/2 PNA / URTI Normocytic anemia s/p Hypokalemia HTN Depression Vascular dementia DVT prophylaxis COMPLICATIONS/CHIEF COMPLAINT: Shortness of breath / Confusion HISTORY OF PRESENT ILLNESS: Patient is a 71-year-old female with a past medical history of vascular dementia/CVA in 2016, dyslipidemia, chronic hypertension, who presented to the emergency room with complaints of confusion. In emergency room, patient was found to have evidence of pneumonia, as well as positive for influenza. She was admitted to hospitalist service for further evaluation and treatment. HOSPITAL COURSE: Sepsis - possibly 2/2 influenza B & likely CAP - Clinically improved; no complaints this morning - Physical without any significant findings - s/p Leukocytosis - Blood cultures 01/18: negative; Influenza 01/18: Positive for Influenza B - CXR 01/18: Increased density inferiorly in the left lung. - s/p Tamiflu x 10 doses - c/w Cefdinir and Azithromycin; s/p IV Ceftriaxone and Azithromycin (Antibiotic day #5) - Patient is a long-standing resident of [facility] and will be returning after completion of Tamiflu therapy (as per their guidelines) s/p Acute metabolic encephalopathy - likely 2/2 sepsis - Confusion resolved - No focal deficits - Family has reported she is back to her baseline level of function - See above s/p Acute hypoxic respiratory failure - possibly 2/2 PNA / URTI - Saturations have improved Normocytic anemia - Drop in Hg - likely 2/2 dilutional etiology - No evidence of bleeding - Hg remained stable s/p Hypokalemia HTN - BP well controlled - c/w HCTZ Depression - c/w Venlafaxine Vascular dementia - Very poor historian - Initially has refused oral intake / medications; however clinically has improved and is cooperating with medications and has been eating meals DVT prophylaxis - c/w Lovenox DISCHARGE MEDICATIONS: Please see below. ALLERGIES: Please see below. PHYSICAL EXAMINATION ON DISCHARGE: Vitals (See below) General: Lying in bed, no acute distress, comfortable, Awake / Alert HEENT: NC, AT CVS: +S1S2 Lungs: -w/r/r and air entry remains fair bilaterally Abdomen: Soft, without any evidence of distention or tenderness Extremities: No evidence of edema, - Calf tenderness LABORATORY DATA: Please see below. ACTIVITY: [As tolerated]. DISCHARGE PLAN: Follow up with Dr. Valeria Garcia within 7 days Remain compliant with treatment plan and medications Return to the ER if you experience any problems DISPOSITION: [facility] DISCHARGE CONDITION: [Stable]. TIME SPENT ON DISCHARGE: 35 minutes Vital Signs/I&Os Vital Signs Date Time Temp Pulse Resp B/P (MAP) Pulse Ox O2 Delivery O2 Flow Rate FiO2 01/23/20 06:00 98.4 77 20 112/60 (77) 94 Room Air 01/20/20 22:00 3.0 01/18/20 05:17 50 I&O- Last 24 Hours up to 6 AM 01/23/20 06:00 Intake Total 660 ml Output Total 0 ml Balance 660 ml Microbiology Microbiology 01/18/20 Blood Culture - Final, Complete NO GROWTH AFTER 5 DAYS 01/18/20 Blood Culture - Final, Complete NO GROWTH AFTER 5 DAYS Discharge Medications Scheduled Azithromycin (Azithromycin) 250 Mg Tablet, 250 MG PO DAILY Cefdinir (Cefdinir) 300 Mg Capsule, 300 MG PO BID Ergocalciferol (Vitamin D2) (Vitamin D2) 50,000 Units Cap, 50,000 UNITS PO QMONTH, (Reported) THE 16TH OF EVERY MONTH Hydrochlorothiazide (Hydrochlorothiazide) 12.5 Mg Tablet, 12.5 MG PO DAILY, (Reported) Ipratropium/Albuterol Sulfate (Iprat-Albut 0.5-3(2.5) mg/3 ml) 3 Ml Ampul.neb, 3 ML INH Q6H, (Reported) 3 DAYS FROM 01/18/20 TO 01/20/20: 0400, 1000, 1600, 2200 Multivitamins (Thera M Plus Tablet) 1 Each Tablet, 1 TAB PO DAILY, (Reported) Potassium Chloride (Potassium Chloride) 10 Meq Capsule.er, 20 MEQ PO DAILY, (Reported) Sennosides/Docusate Sodium (Senna-S Tablet) 1 Each Tablet, 2 TAB PO DAILY, (Reported) Venlafaxine HCl (Venlafaxine HCl ER) 37.5 Mg Cap.er.24h, 37.5 MG PO DAILY, (Reported) TAKES WITH 75MG FOR 112.5MG TOTAL Venlafaxine HCl (Venlafaxine HCl ER) 75 Mg Cap.er.24h, 75 MG PO DAILY, (Reported) TAKES WITH 37.5MG FOR 112.5MG TOTAL Scheduled PRN Acetaminophen (Acetaminophen) 650 Mg Supp.rect, 650 MG NH Q4H PRN for PAIN / FEVER, (Reported) Acetaminophen (Tylenol) 325 Mg Tablet, 650 MG PO Q4H PRN for PAIN / FEVER, (Reported) Bisacodyl (Dulcolax) 10 Mg Supp.rect, 10 MG NH DAILY PRN for CONSTIPATION, (Reported) Fluticasone Propionate (Fluticasone Propionate 0.05%) 30 Gm Cream..g., 1 DOSE TOP BID PRN for FLARES, (Reported) APPLY TO AFFECTED AREAS ON EYELIDS AND FLARES Sodium Phosphate,Collin-Dibasic (Fleet Enema) 133 Ml Enema, 1 [place] DAILY PRN for CONSTIPATION, (Reported) Allergies Coded Allergies: No Known Allergies (Unverified , 11/29/17) LUDWIG LEVINE MD Jan 23, 2020 13:54
== END 2020-01-23 12:09 | DRG 871 ==
LOC: M ED 03:16 → M ED INP 05:08 → ENRESERV 05:30 → M MSPAV 06:23
PROVIDERS: ADMIT Internal Medicine; ATTEND Internal Medicine
DX: A41.9 Sepsis, unspecified organism (principal); J11.08 Influenza due to unidentified influenza virus with specified pneumonia; G93.41 Metabolic encephalopathy; J96.01 Acute respiratory failure with hypoxia; E87.6 Hypokalemia; F32.9 Major depressive disorder, single episode, unspecified; I10 Essential (primary) hypertension; F01.50 Vascular dementia, unspecified severity, without behavioral disturbance, psychotic disturbance, mood disturbance, and anxiety; D64.9 Anemia, unspecified; Z79.899 Other long term (current) drug therapy

== ENCOUNTER → 2020-03-11 | Outpatient (REF) | payer MEDICARE, OTHER ==
[~2020-03-11] MED LIST changes: +ACET-907 PO; +ACET650S3 PR; +AZIT-12 PO; +CEFD300CAP PO; +DULC10SU2 PR; +FLEEENE12 PR; +FLUT05CR TOP; +HYDR12.55 PO; +IPRA0.00 INH; +POTA10CA32 PO; +SENN1TAB41 PO; +VENL37.52 PO; +VENL75CA47 PO; +VITA50005 PO; +VITMTA PO
[2020-03-11 12:07] LABS: ALT/SGPT 18 U/L (12-78); BILIRUBIN,TOTAL 0.7 MG/DL (0.2-1.0); BLOOD UREA NITROGEN 14 MG/DL (7-18); CALCIUM LEVEL 9.1 MG/DL (8.8-10.2); CARBON DIOXIDE LEVEL 29 MEQ/L (21-32); CHLORIDE LEVEL 101 MEQ/L (98-107); CREATININE FOR GFR 0.67 MG/DL (0.55-1.30); GLOMERULAR FILTRATION RATE > 60.0 (>39); GLUCOSE, FASTING 80 MG/DL (70-100); POTASSIUM SERUM 3.6 MEQ/L (3.5-5.1); SODIUM LEVEL 135 MEQ/L (136-145); TOTAL PROTEIN 6.5 GM/DL (6.4-8.2)
== END ==
LOC: SKLAB3 14:56
PROVIDERS: ATTEND Internal Medicine
DX: D64.9 Anemia, unspecified (principal); I10 Essential (primary) hypertension

== ENCOUNTER → 2020-04-01 | Outpatient (REF) | LOC: SKLAB3 11:40 | PROVIDERS: ATTEND Internal Medicine | DX: Z03.818 Encounter for observation for suspected exposure to other biological agents ruled out (principal) ==

== ENCOUNTER → 2020-05-02 | Outpatient (REF) | payer MEDICARE, OTHER | LOC: SKLAB3 14:40 | PROVIDERS: ATTEND Internal Medicine | DX: S31.809A Unspecified open wound of unspecified buttock, initial encounter (principal) ==

== ENCOUNTER → 2020-05-02 | Outpatient (REF) | payer MEDICARE, OTHER | LOC: SKLAB3 11:35 | PROVIDERS: ATTEND Internal Medicine | DX: Z53.8 Procedure and treatment not carried out for other reasons (principal) ==

== ENCOUNTER → 2020-05-06 | Outpatient (REF) | payer MEDICARE, OTHER ==
[2020-05-06 09:21] LABS: BLOOD UREA NITROGEN 17 MG/DL (7-18); CALCIUM LEVEL 8.8 MG/DL (8.8-10.2); CARBON DIOXIDE LEVEL 27 MEQ/L (21-32); CHLORIDE LEVEL 100 MEQ/L (98-107); CREATININE FOR GFR 0.89 MG/DL (0.55-1.30); GLOMERULAR FILTRATION RATE > 60.0 (>39); GLUCOSE, FASTING 145 MG/DL (70-100); POTASSIUM SERUM 3.8 MEQ/L (3.5-5.1); SODIUM LEVEL 134 MEQ/L (136-145)
== END ==
LOC: SKLAB3 06:54
PROVIDERS: ATTEND Internal Medicine
DX: I10 Essential (primary) hypertension (principal)

== ENCOUNTER → 2020-10-08 | Outpatient (REF) | payer MEDICARE, OTHER ==
[~2020-10-08] MED LIST changes: -ASPI81TA85 PO; +ASPI81TA86 PO
== END ==
LOC: SKLAB5 10-07 15:00 → EDSTATUS 11-08 15:06
PROVIDERS: ATTEND Internal Medicine
DX: Z20.828 Contact with and (suspected) exposure to other viral communicable diseases (principal)

== ENCOUNTER → 2020-10-15 | Outpatient (REF) | payer MEDICARE, OTHER | LOC: SKLAB5 08:00 | PROVIDERS: ATTEND Internal Medicine | DX: Z20.828 Contact with and (suspected) exposure to other viral communicable diseases (principal) ==

== ENCOUNTER → 2020-10-22 | Outpatient (REF) | payer MEDICARE, OTHER | LOC: SKLAB5 08:00 | PROVIDERS: ATTEND Internal Medicine | DX: Z20.828 Contact with and (suspected) exposure to other viral communicable diseases (principal) ==

== ENCOUNTER → 2020-10-23 | Outpatient (REF) | payer MEDICARE, OTHER ==
[2020-10-23 08:12] LABS: HEMATOCRIT 41.7 % (36.0-47.0); HEMOGLOBIN 13.4 g/dl (12.0-15.5); MEAN CORPUSCULAR HEMOGLOBIN 28.9 pg (27.0-33.0); MEAN CORPUSCULAR HGB CONC 32.1 g/dl (32.0-36.5); MEAN CORPUSCULAR VOLUME 90.1 fl (80.0-96.0); PLATELET COUNT, AUTOMATED 349 10^3/uL (150-450); RED BLOOD COUNT 4.63 10^6/uL (4.00-5.40); WHITE BLOOD COUNT 7.7 10^3/uL (4.0-10.0)
[2020-10-23 08:42] LABS: BLOOD UREA NITROGEN 18 MG/DL (7-18); CARBON DIOXIDE LEVEL 27 MEQ/L (21-32); CHLORIDE LEVEL 102 MEQ/L (98-107); CREATININE FOR GFR 0.71 MG/DL (0.55-1.30); GLOMERULAR FILTRATION RATE > 60.0 (>39); GLUCOSE, FASTING 101 MG/DL (70-100); SODIUM LEVEL 136 MEQ/L (136-145)
[2020-10-23 08:43] LABS: ALBUMIN 3.4 GM/DL (3.2-5.2); ALT/SGPT 16 U/L (12-78); BILIRUBIN,TOTAL 0.5 MG/DL (0.2-1.0); CALCIUM LEVEL 9.1 MG/DL (8.8-10.2)
== END ==
LOC: SKLAB5 08:03
PROVIDERS: ATTEND Internal Medicine
DX: F03.90 Unspecified dementia, unspecified severity, without behavioral disturbance, psychotic disturbance, mood disturbance, and anxiety (principal); I10 Essential (primary) hypertension

== ENCOUNTER → 2020-10-29 | Outpatient (REF) | payer MEDICARE, OTHER | LOC: SKLAB5 06:39 | PROVIDERS: ATTEND Family Medicine | DX: Z20.828 Contact with and (suspected) exposure to other viral communicable diseases (principal) ==

== ENCOUNTER → 2020-11-05 | Outpatient (REF) | payer MEDICARE, OTHER | LOC: SKLAB5 09:09 | PROVIDERS: ATTEND Internal Medicine | DX: Z20.828 Contact with and (suspected) exposure to other viral communicable diseases (principal) ==

== ENCOUNTER → 2020-11-12 | Outpatient (REF) | payer MEDICARE, OTHER | LOC: SKLAB5 05:58 | PROVIDERS: ATTEND Internal Medicine | DX: Z20.828 Contact with and (suspected) exposure to other viral communicable diseases (principal) ==

== ENCOUNTER → 2020-11-19 | Outpatient (REF) | payer MEDICARE, OTHER | LOC: SKLAB5 06:29 | PROVIDERS: ATTEND Internal Medicine | DX: Z20.828 Contact with and (suspected) exposure to other viral communicable diseases (principal) ==

== ENCOUNTER → 2020-11-26 | Outpatient (REF) | payer MEDICARE, OTHER | LOC: SKLAB5 06:58 | PROVIDERS: ATTEND Internal Medicine | DX: Z11.52 Encounter for screening for COVID-19 (principal) ==

== ENCOUNTER → 2020-12-03 | Outpatient (REF) | payer MEDICARE, OTHER | LOC: SKLAB5 06:39 | PROVIDERS: ATTEND Internal Medicine | DX: Z11.52 Encounter for screening for COVID-19 (principal) ==

== ENCOUNTER → 2020-12-10 | Outpatient (REF) | payer MEDICARE, OTHER | LOC: SKLAB5 07:16 | PROVIDERS: ATTEND Internal Medicine | DX: Z20.822 Contact with and (suspected) exposure to COVID-19 (principal) ==

== ENCOUNTER → 2020-12-17 | Outpatient (REF) | payer MEDICARE, OTHER | LOC: SKLAB5 07:09 | PROVIDERS: ATTEND Internal Medicine | DX: Z20.822 Contact with and (suspected) exposure to COVID-19 (principal) ==

== ENCOUNTER → 2020-12-24 | Outpatient (REF) | payer MEDICARE, OTHER | LOC: SKLAB5 07:20 | PROVIDERS: ATTEND Internal Medicine | DX: Z20.822 Contact with and (suspected) exposure to COVID-19 (principal) ==

== ENCOUNTER → 2020-12-31 | Outpatient (REF) | payer MEDICARE, OTHER | LOC: SKLAB5 06:22 | PROVIDERS: ATTEND Internal Medicine | DX: Z20.822 Contact with and (suspected) exposure to COVID-19 (principal) ==

== ENCOUNTER → 2021-01-02 | Outpatient (REF) | payer MEDICARE, OTHER ==
[2021-01-02 09:15] LABS: HEMATOCRIT 43.8 % (36.0-47.0); HEMOGLOBIN 13.9 g/dl (12.0-15.5); MEAN CORPUSCULAR HGB CONC 31.7 g/dl (32.0-36.5); MEAN CORPUSCULAR VOLUME 91.4 fl (80.0-96.0); PLATELET COUNT, AUTOMATED 326 10^3/uL (150-450); RED BLOOD COUNT 4.79 10^6/uL (4.00-5.40); WHITE BLOOD COUNT 10.9 10^3/uL (4.0-10.0)
[2021-01-02 09:54] LABS: BLOOD UREA NITROGEN 25 MG/DL (7-18); CALCIUM LEVEL 8.8 MG/DL (8.8-10.2); CARBON DIOXIDE LEVEL 26 MEQ/L (21-32); CHLORIDE LEVEL 100 MEQ/L (98-107); GLOMERULAR FILTRATION RATE > 60.0 (>39); GLUCOSE, FASTING 161 MG/DL (70-100); NT-PRO BNP 279 PG/ML (<450); POTASSIUM SERUM 3.7 MEQ/L (3.5-5.1); SODIUM LEVEL 135 MEQ/L (136-145)
[2021-01-02 10:22] LABS: APPEARANCE, URINE CLOUDY (CLEAR); BACTERIA, URINE AUTO 3+ (NEGATIVE); BILIRUBIN, URINE AUTO NEGATIVE (NEGATIVE); BLOOD, URINE BLOOD 1+ (NEGATIVE); COLOR, URINE YELLOW (YELLOW); GLUCOSE, URINE (UA) AUTO NEGATIVE (NEGATIVE); KETONE, URINE AUTO NEGATIVE (NEGATIVE); LEUKOCYTE ESTERASE, URINE AUTO 3+ (NEGATIVE); MUCUS, URINE SMALL (NEGATIVE); NITRITE, URINE AUTO POSITIVE (NEGATIVE); PROTEIN, URINE AUTO 2+ mg/dL (NEGATIVE); RBC, URINE AUTO 10 /HPF (0-3); RENAL EPITHELIAL CELLS 1 /HPF; SPECIFIC GRAVITY URINE AUTO 1.016 (1.002-1.035); SQUAMOUS EPITHELIAL CELL UR AU 5 /HPF (0-6); UROBILINOGEN, URINE AUTO 0.2 mg/dL (0.0-2.0); WBC, URINE AUTO TNTC /HPF (0-3)
== END ==
LOC: SKLAB5 08:36
PROVIDERS: ATTEND Internal Medicine
DX: R41.89 Other symptoms and signs involving cognitive functions and awareness (principal); Z79.899 Other long term (current) drug therapy

== ENCOUNTER → 2021-01-06 | Outpatient (REF) | payer MEDICARE, OTHER ==
[2021-01-06 11:35] LABS: CHOLESTEROL RISK RATIO 5.484 (<5)
== END ==
LOC: SKLAB5 06:02
PROVIDERS: ATTEND Internal Medicine
DX: E78.5 Hyperlipidemia, unspecified (principal)

== ENCOUNTER → 2021-01-07 | Outpatient (REF) | payer MEDICARE, OTHER | LOC: SKLAB5 06:34 | PROVIDERS: ATTEND Internal Medicine | DX: Z20.822 Contact with and (suspected) exposure to COVID-19 (principal) ==

== ENCOUNTER → 2021-01-14 | Outpatient (REF) | payer MEDICARE, OTHER | LOC: SKLAB5 08:00 | PROVIDERS: ATTEND Internal Medicine | DX: Z20.822 Contact with and (suspected) exposure to COVID-19 (principal) ==

== ENCOUNTER → 2021-01-22 | Outpatient (REF) | payer MEDICARE, OTHER | LOC: SKLAB5 06:03 | PROVIDERS: ATTEND Internal Medicine | DX: Z20.822 Contact with and (suspected) exposure to COVID-19 (principal) ==

== ENCOUNTER → 2021-01-28 | Outpatient (REF) | payer MEDICARE, OTHER | LOC: SKLAB5 06:28 | PROVIDERS: ATTEND Internal Medicine | DX: Z20.822 Contact with and (suspected) exposure to COVID-19 (principal) ==

== ENCOUNTER → 2021-02-04 | Outpatient (REF) | payer MEDICARE, OTHER | LOC: SKLAB5 07:33 | PROVIDERS: ATTEND Internal Medicine | DX: Z20.822 Contact with and (suspected) exposure to COVID-19 (principal) ==

== ENCOUNTER → 2021-02-20 | Outpatient (REF) | payer MEDICARE, OTHER | LOC: SKLAB5 07:11 | PROVIDERS: ATTEND Internal Medicine | DX: Z20.822 Contact with and (suspected) exposure to COVID-19 (principal) ==

== ENCOUNTER → 2021-04-23 | Outpatient (REF) | payer MEDICARE, OTHER ==
[2021-04-23 09:24] LABS: HEMATOCRIT 42.4 % (36.0-47.0); HEMOGLOBIN 13.8 g/dl (12.0-15.5); MEAN CORPUSCULAR HEMOGLOBIN 29.6 pg (27.0-33.0); MEAN CORPUSCULAR HGB CONC 32.5 g/dl (32.0-36.5); MEAN CORPUSCULAR VOLUME 90.8 fl (80.0-96.0); PLATELET COUNT, AUTOMATED 337 10^3/uL (150-450); RED BLOOD COUNT 4.67 10^6/uL (4.00-5.40); WHITE BLOOD COUNT 10.6 10^3/uL (4.0-10.0)
[2021-04-23 09:51] LABS: ALBUMIN 3.4 GM/DL (3.2-5.2); ALT/SGPT 31 U/L (12-78); BILIRUBIN,TOTAL 0.6 MG/DL (0.2-1.0); BLOOD UREA NITROGEN 23 MG/DL (7-18); CALCIUM LEVEL 9.3 MG/DL (8.8-10.2); CARBON DIOXIDE LEVEL 25 MEQ/L (21-32); CHLORIDE LEVEL 101 MEQ/L (98-107); CREATININE FOR GFR 0.86 MG/DL (0.55-1.30); GLOMERULAR FILTRATION RATE > 60.0 (>39); GLUCOSE, FASTING 174 MG/DL (70-100); POTASSIUM SERUM 3.8 MEQ/L (3.5-5.1); SODIUM LEVEL 136 MEQ/L (136-145); TOTAL PROTEIN 7.2 GM/DL (6.4-8.2)
== END ==
LOC: SKLAB5 07:58
PROVIDERS: ATTEND Internal Medicine
DX: D64.9 Anemia, unspecified (principal); I10 Essential (primary) hypertension

== ENCOUNTER → 2021-06-18 | Outpatient (REF) | payer MEDICARE, OTHER ==
[~2021-06-18] MED LIST changes: +ERGO500029 PO; -VITA50005 PO
[2021-06-18 11:39] LABS: CHOLESTEROL RISK RATIO 2.865 (<5)
== END ==
LOC: SKLAB5 09:27
PROVIDERS: ATTEND Internal Medicine
DX: E78.5 Hyperlipidemia, unspecified (principal)

== ENCOUNTER → 2021-09-01 | Outpatient (REF) | payer MEDICARE, OTHER ==
[2021-09-01 14:49] LABS: HEMOGLOBIN 12.9 g/dl (12.0-15.5); MEAN CORPUSCULAR HGB CONC 33.1 g/dl (32.0-36.5); MEAN CORPUSCULAR VOLUME 90.7 fl (80.0-96.0); PLATELET COUNT, AUTOMATED 317 10^3/uL (150-450); WHITE BLOOD COUNT 12.6 10^3/uL (4.0-10.0)
[2021-09-01 15:05] LABS: BLOOD UREA NITROGEN 18 MG/DL (7-18); CARBON DIOXIDE LEVEL 27 MEQ/L (21-32); CHLORIDE LEVEL 103 MEQ/L (98-107); CREATININE FOR GFR 0.67 MG/DL (0.55-1.30); GLOMERULAR FILTRATION RATE > 60.0 (>39); GLUCOSE, FASTING 102 MG/DL (70-100); POTASSIUM SERUM 4.2 MEQ/L (3.5-5.1); SODIUM LEVEL 136 MEQ/L (136-145)
[2021-09-01 18:00] LABS: APPEARANCE, URINE CLOUDY (CLEAR); BACTERIA, URINE AUTO 1+ (NEGATIVE); BILIRUBIN, URINE AUTO NEGATIVE (NEGATIVE); BLOOD, URINE BLOOD 3+ (NEGATIVE); COLOR, URINE YELLOW (YELLOW); GLUCOSE, URINE (UA) AUTO NEGATIVE (NEGATIVE); KETONE, URINE AUTO NEGATIVE (NEGATIVE); LEUKOCYTE ESTERASE, URINE AUTO 3+ (NEGATIVE); MUCUS, URINE SMALL (NEGATIVE); NITRITE, URINE AUTO NEGATIVE (NEGATIVE); PROTEIN, URINE AUTO 2+ mg/dL (NEGATIVE); RBC, URINE AUTO 20 /HPF (0-3); SPECIFIC GRAVITY URINE AUTO 1.017 (1.002-1.035); SQUAMOUS EPITHELIAL CELL UR AU 10 /HPF (0-6); UROBILINOGEN, URINE AUTO 0.2 mg/dL (0.0-2.0); WBC, URINE AUTO TNTC /HPF (0-3)
== END ==
LOC: SKLAB5 08:24
PROVIDERS: ATTEND Internal Medicine
DX: R46.4 Slowness and poor responsiveness (principal); Z91.81 History of falling; R41.82 Altered mental status, unspecified; D72.829 Elevated white blood cell count, unspecified

== ENCOUNTER → 2021-09-01 | Outpatient (CLI) | payer MEDICARE, OTHER ==
--- NOTE | 2021-09-01 10:50 | REP ---
INDICATION: S/P FALL W/ UNRESPONSIVE EPISODES COMPARISON: Report dated 08/23/2017 TECHNIQUE: Axial noncontrast images from the skull base to the thoracic inlet with coronal reformations. This CT examination was performed using the following dose reduction techniques: Automated exposure control, adjustment of mA and/or kv according to the patient's size, and use of iterative reconstruction technique. FINDINGS: Atrophy with periventricular leukomalacia and microvascular ischemic changes are appreciated. Encephalomalacia involving the left parieto-occipital lobe consistent with old infarction. The ventricles and sulci are symmetric. Khan-white differentiation is maintained. There is no evidence for acute intracranial hemorrhage, mass/mass effect, pathology or infarction. No extra-axial fluid collection. Calvarium is intact. Paranasal sinuses and mastoid air cells are clear. IMPRESSION: Significant atrophy and microvascular ischemic changes. No acute intracranial hemorrhage, infarction, or mass/mass effect. <Electronically signed by Aleksandr Marroquin > 09/01/21 1047
== END ==
LOC: M RAD 10:22
PROVIDERS: ATTEND Nurse Practitioner
DX: R41.82 Altered mental status, unspecified (principal); Z91.81 History of falling; G93.89 Other specified disorders of brain; R46.4 Slowness and poor responsiveness; D72.829 Elevated white blood cell count, unspecified

== ENCOUNTER → 2021-09-08 | Outpatient (REF) | payer MEDICARE, OTHER | LOC: SKLAB5 11:22 | PROVIDERS: ATTEND Internal Medicine | DX: Z20.822 Contact with and (suspected) exposure to COVID-19 (principal) ==

== ENCOUNTER → 2021-09-10 | Outpatient (REF) | payer MEDICARE, OTHER | LOC: SKLAB5 09:01 | PROVIDERS: ATTEND Internal Medicine | DX: Z20.822 Contact with and (suspected) exposure to COVID-19 (principal) ==

== ENCOUNTER → 2021-09-14 | Outpatient (REF) | payer MEDICARE, OTHER | LOC: SKLAB5 06:12 | PROVIDERS: ATTEND Internal Medicine | DX: Z20.822 Contact with and (suspected) exposure to COVID-19 (principal) ==

== ENCOUNTER → 2021-09-17 | Outpatient (REF) | payer MEDICARE, OTHER | LOC: SKLAB5 06:00 | PROVIDERS: ATTEND Internal Medicine | DX: Z20.822 Contact with and (suspected) exposure to COVID-19 (principal) ==

== ENCOUNTER → 2021-09-21 | Outpatient (REF) | payer MEDICARE, OTHER | LOC: SKLAB5 05:21 | PROVIDERS: ATTEND Internal Medicine | DX: Z20.822 Contact with and (suspected) exposure to COVID-19 (principal) ==

== ENCOUNTER → 2021-09-24 | Outpatient (REF) | payer MEDICARE, OTHER | LOC: SKLAB5 09:00 | PROVIDERS: ATTEND Internal Medicine | DX: Z20.822 Contact with and (suspected) exposure to COVID-19 (principal) ==

== ENCOUNTER → 2021-09-30 | Outpatient (REF) | payer MEDICARE, OTHER | LOC: SKLAB5 13:28 | PROVIDERS: ATTEND Internal Medicine | DX: Z20.822 Contact with and (suspected) exposure to COVID-19 (principal) ==

== ENCOUNTER → 2021-10-07 | Outpatient (REF) | payer MEDICARE, OTHER | LOC: SKLAB5 07:49 | PROVIDERS: ATTEND Internal Medicine | DX: Z20.822 Contact with and (suspected) exposure to COVID-19 (principal) ==

== ENCOUNTER → 2021-10-27 | Outpatient (REF) | payer MEDICARE, OTHER | LOC: SKLAB5 10:52 | PROVIDERS: ATTEND Internal Medicine | DX: Z20.822 Contact with and (suspected) exposure to COVID-19 (principal) ==

== ENCOUNTER → 2021-11-04 | Outpatient (REF) | payer MEDICARE, OTHER | LOC: SKLAB5 13:39 | PROVIDERS: ATTEND Internal Medicine | DX: Z20.822 Contact with and (suspected) exposure to COVID-19 (principal) ==

== ENCOUNTER → 2021-11-11 | Outpatient (REF) | payer MEDICARE, OTHER | LOC: SKLAB5 14:25 | PROVIDERS: ATTEND Internal Medicine | DX: Z20.822 Contact with and (suspected) exposure to COVID-19 (principal) ==

== ENCOUNTER → 2021-11-18 | Outpatient (REF) | payer MEDICARE, OTHER | LOC: SKLAB5 11:07 | PROVIDERS: ATTEND Internal Medicine | DX: Z20.822 Contact with and (suspected) exposure to COVID-19 (principal) ==

== ENCOUNTER → 2021-11-25 | Outpatient (REF) | payer MEDICARE, OTHER ==
[~2021-11-25] MED LIST changes: +BISO1TAB18 PO; -BISO5TAB2 PO
== END ==
LOC: SKLAB5 06:27
PROVIDERS: ATTEND Internal Medicine
DX: Z20.822 Contact with and (suspected) exposure to COVID-19 (principal)

== ENCOUNTER → 2022-05-03 | Outpatient (REF) | payer MEDICARE, OTHER | LOC: SKLAB5 10:54 | PROVIDERS: ATTEND Nurse Practitioner Adult Health | DX: R91.8 Other nonspecific abnormal finding of lung field (principal) ==

== ENCOUNTER → 2022-12-14 | Outpatient (REF) | payer MEDICARE, OTHER ==
[~2022-12-14] MED LIST changes: +CLOP75TA99 PO; -PLAV1TAB2 PO; -POTA10CA32 PO; +POTA10CA33 PO
[2022-12-14 15:25] LABS: HEMATOCRIT 43.2 % (36.0-47.0); HEMOGLOBIN 13.6 g/dl (12.0-15.5); MEAN CORPUSCULAR HEMOGLOBIN 29.3 pg (27.0-33.0); MEAN CORPUSCULAR HGB CONC 31.5 g/dl (32.0-36.5); MEAN CORPUSCULAR VOLUME 93.1 fl (80.0-96.0); PLATELET COUNT, AUTOMATED 253 10^3/uL (150-450); RED BLOOD COUNT 4.64 10^6/uL (4.00-5.40); WHITE BLOOD COUNT 9.1 10^3/uL (4.0-10.0)
[2022-12-14 15:39] LABS: BLOOD UREA NITROGEN 16 MG/DL (9-23); CALCIUM LEVEL 8.5 MG/DL (8.3-10.6); CARBON DIOXIDE LEVEL 22 MMOL/L (20-31); CHLORIDE LEVEL 105 MMOL/L (98-107); CREATININE FOR GFR 0.62 MG/DL (0.55-1.30); GLOMERULAR FILTRATION RATE > 60.0 (>32); GLUCOSE, FASTING 135 MG/DL (74-106); POTASSIUM SERUM 4.1 MMOL/L (3.5-5.1); SODIUM LEVEL 138 MMOL/L (136-145)
== END ==
LOC: SKLAB5 13:17
PROVIDERS: ATTEND Nurse Practitioner
DX: U07.1 COVID-19 (principal); Z79.899 Other long term (current) drug therapy

== ENCOUNTER → 2022-12-14 | Outpatient (REF) | payer MEDICARE, OTHER | LOC: SKLAB5 15:16 | PROVIDERS: ATTEND Internal Medicine | DX: U07.1 COVID-19 (principal); Z53.8 Procedure and treatment not carried out for other reasons ==

== ENCOUNTER → 2022-12-14 | Outpatient (REF) | payer MEDICARE, OTHER | LOC: SKLAB5 15:17 | PROVIDERS: ATTEND Internal Medicine | DX: U07.1 COVID-19 (principal); Z53.8 Procedure and treatment not carried out for other reasons ==

== ENCOUNTER → 2022-12-14 | Outpatient (REF) | payer MEDICARE, OTHER | LOC: SKLAB5 15:17 | PROVIDERS: ATTEND Internal Medicine | DX: U07.1 COVID-19 (principal); Z53.8 Procedure and treatment not carried out for other reasons ==